=== PATIENT | female | born 1940 | race Caucasian/White ===

== ENCOUNTER 2021-09-08 21:29 | Inpatient (IN) ==
[2021-09-08] MEDS ORDERED: HYDROmorphone INJ 0.5 MG/0.5 ML SYR IV STA (21:38)
[2021-09-08] MEDS ORDERED: ONDANSETRON INJ 2 MG/ML 2 ML VIAL IV STA (21:38)
--- NOTE | 2021-09-08 21:43 | Emergency Department Note ---
History of Present Illness General Chief complaint: Fall Stated complaint: FALL/R HIP Time Seen by Provider: 09/08/21 21:30 Source: patient History of Present Illness Provider complaint: Right hip pain Onset (ago): hour(s) Location: hip and right Radiation: extremity (Right thigh) Severity: moderate Pain Consistency: + constant Quality: + aching Exacerbated By: + movement Associated symptoms: no chest pain, no cough, no fever/chills, no headaches, no nausea/vomiting, no shortness of breath or no syncope This is an 81-year-old female who slipped getting out of the shower approximately 6:30 PM today. She landed on her right leg and complains of pain to the right hip and leg. She describes it as an ache. She states the pain is constant. Is worse with movement. No associated numbness or weakness to the toes. She is sure she did not hit her head. She denies any headache, neck pain, back pain or other injury from the fall. She states she is on Coumadin for a history of DVT years ago. She otherwise takes a statin for high cholesterol. She denies any other medical problems. She has had no recent illness, fever, cough or cold symptoms, chest pain, shortness of breath, abdominal pain, vomiting, diarrhea or urinary symptoms. Home Medications Medication Instructions Recorded Confirmed Type atorvastatin 20 mg tablet 20 mg PO QPM 09/08/21 09/08/21 History warfarin 5 mg tablet 2.5 mg PO QPM 09/08/21 09/08/21 History Allergies Allergy/AdvReac Type Severity Reaction Status Date / Time rosuvastatin [From Crestor] AdvReac Unknown Unknown Verified 09/08/21 22:32 Past Med/Surg History Medical History (Updated 09/08/21 @ 23:27 by Ramy Smith MD) High cholesterol History of DVT (deep vein thrombosis) Social History (Updated 09/08/21 @ 21:41 by Ramy Smith MD) Smoking Status: Never smoker current occupational status: retired Review of Systems See HPI for pertinent positives & negatives. and A total of 10 systems reviewed and were otherwise negative Physical Exam Vital Signs Vital Signs - 24 hr 09/08/21 21:50 09/08/21 22:00 09/08/21 23:20 Temperature 36.8 C Temperature Source Oral Pulse Rate 92 H 88 91 H Respiratory Rate 18 18 16 Respiratory Effort / Characteristics Non-Labored Spontaneous Respiratory Depth Normal Blood Pressure 174/87 H 158/85 H 159/83 H Blood Pressure Mean 116 109 108 Blood Pressure Position Lying Pulse Oximetry 95 95 93 Sepsis Recent Fever Within 48 Hours No Sepsis New/Unexplained Change in Mental Status No Sepsis Action Taken by Nursing No Action Required Constitutional: Vital signs reviewed. Eyes: Pupils are equal round reactive to light. Conjunctiva are noninjected. ENT: Pharynx is clear without erythema or exudate. Mucous membranes are moist. Neck supple without meningeal signs. Respiratory: Clear to auscultation bilaterally. Breath sounds are equal bilaterally. Cardiovascular: Regular rate and rhythm. No rubs or gallops. GI: Soft, nondistended and nontender. Bowel sounds are present. Musculoskeletal: Significant shortening and external rotation of the right lower extremity. Dorsalis pedis pulses 2+. Motor and sensation are intact in the toes. Tenderness over the right hip. Integumentary: No cyanosis. or jaundice. Neurological: The patient is awake and alert. No focal deficits. Psychiatric: Normal affect. Not anxious appearing. Course Administered Medications Discontinued Medications Hydromorphone HCl (Hydromorphone Inj 0.5 Mg/0.5 Ml Syr) 0.5 mg IV NOW STA Stop: 09/08/21 21:39 Last Admin: 09/08/21 22:00 Dose: 0.5 mg Documented by: [id number] Ondansetron HCl (Ondansetron Inj 2 Mg/Ml 2 Ml Vial) 4 mg IV NOW STA Stop: 09/08/21 21:39 Last Admin: 09/08/21 22:00 Dose: 4 mg Documented by: [id number] Medical Decision Making Differential Diagnosis Hip fracture, hip dislocation, femur fracture, pelvic fracture, contusion Medical Records Attestation: I reviewed the patient's medical records. I did perform a limited focused review of portions of the patient's old chart on the electronic medical record. The patient has had no recent pertinent visits to this hospital. Home Medications Current Medication List: was personally reviewed by me Laboratory Data Attestation: I reviewed the patient's lab results. Result diagrams: 09/08/21 21:45 09/08/21 21:45 Lab Results 09/08/21 09/08/21 09/08/21 Range/Units 21:45 21:45 21:45 WBC 12.92 H (4.8-10.8) K/uL RBC 4.46 (4.2-5.4) M/uL Hgb 13.5 (12.0-16.0) g/dL Hct 42.1 (37-47) % MCV 94.4 (80-100) fL MCH 30.3 (25-34) pg MCHC 32.1 (32-36) g/dL RDW Std Deviation 46.7 H (36.4-46.3) fL RDW Coeff of Alejandro 13.4 (11.5-14.5) % Plt Count 215 (130-400) K/uL MPV 9.7 (7.4-10.4) fL Immature Gran % (Auto) 0.2 % Neut % (Auto) 85.7 % Lymph % (Auto) 7.7 % [place] % (Auto) 6.0 % Eos % (Auto) 0.2 % Baso % (Auto) 0.2 % Neut # (Auto) 11.08 H (1.4-6.5) K/uL Lymph # (Auto) 0.99 L (1.2-3.4) K/uL [place] # (Auto) 0.77 H (0.11-0.59) K/uL Eos # (Auto) 0.03 (0-0.5) K/uL Baso # (Auto) 0.02 (0-0.2) K/uL Immature Gran # (Auto) 0.03 H (0.00-0.02) K/uL PT 22.7 H (9.0-12.0) Seconds INR 2.4 H (0.9-1.1) APTT 30.5 (21.0-31.0) Seconds PTT Ratio 1.2 Sodium 141 (136-145) mmol/L Potassium 3.8 (3.5-5.1) mmol/L Chloride 107 (98-107) mmol/L Carbon Dioxide 25 (21-32) mmol/L Anion Gap 9.0 (3-11) BUN 29 H (7-18) mg/dl Creatinine 0.91 (0.6-1.2) mg/dl Est Cr Clr Drug Dosing 43.6 ml/min Est GFR ( Amer) 68.6 ml/min Est GFR (Non-Af Amer) 59.2 ml/min BUN/Creatinine Ratio 31.2 H (10-20) Glucose 229 H (70-99) mg/dl Calcium 9.2 (8.5-10.1) mg/dl Total Bilirubin 0.5 (0.2-1) mg/dl AST 19 (15-37) U/L ALT 27 (12-78) Alkaline Phosphatase 99 (45-117) U/L Total Protein 7.4 (6.4-8.2) gm/dl Albumin 3.7 (3.4-5.0) gm/dl Globulin 3.7 (2.5-4.0) gm/dl Albumin/Globulin Ratio 1.0 (0.9-2) Urine Color Urine Appearance (Clear) Urine pH (4.5-7.5) Ur Specific [place] (1.000-1.030) Urine Protein (Negative) Urine Glucose (UA) (Negative) Urine Ketones (Negative) Urine Blood (Negative) Urine Nitrite (Negative) Urine Bilirubin (Negative) Urine Urobilinogen (Negative) Ur Leukocyte Esterase (Negative) Urine WBC (Auto) (0-5) /hpf Urine RBC (Auto) (0-4) /hpf U Hyaline Cast (Auto) (0-5) /lpf U Epithel Cells (Auto) (0-5) /lpf Urine Bacteria (Auto) (Negative) Urine Yeast SARS-CoV-2, RNA, NAAT (NEGATIVE) 09/08/21 09/08/21 Range/Units 21:45 21:55 WBC (4.8-10.8) K/uL RBC (4.2-5.4) M/uL Hgb (12.0-16.0) g/dL Hct (37-47) % MCV (80-100) fL MCH (25-34) pg MCHC (32-36) g/dL RDW Std Deviation (36.4-46.3) fL RDW Coeff of Alejandro (11.5-14.5) % Plt Count (130-400) K/uL MPV (7.4-10.4) fL Immature Gran % (Auto) % Neut % (Auto) % Lymph % (Auto) % [place] % (Auto) % Eos % (Auto) % Baso % (Auto) % Neut # (Auto) (1.4-6.5) K/uL Lymph # (Auto) (1.2-3.4) K/uL [place] # (Auto) (0.11-0.59) K/uL Eos # (Auto) (0-0.5) K/uL Baso # (Auto) (0-0.2) K/uL Immature Gran # (Auto) (0.00-0.02) K/uL PT (9.0-12.0) Seconds INR (0.9-1.1) APTT (21.0-31.0) Seconds PTT Ratio Sodium (136-145) mmol/L Potassium (3.5-5.1) mmol/L Chloride (98-107) mmol/L Carbon Dioxide (21-32) mmol/L Anion Gap (3-11) BUN (7-18) mg/dl Creatinine (0.6-1.2) mg/dl Est Cr Clr Drug Dosing ml/min Est GFR ( Amer) ml/min Est GFR (Non-Af Amer) ml/min BUN/Creatinine Ratio (10-20) Glucose (70-99) mg/dl Calcium (8.5-10.1) mg/dl Total Bilirubin (0.2-1) mg/dl AST (15-37) U/L ALT (12-78) Alkaline Phosphatase (45-117) U/L Total Protein (6.4-8.2) gm/dl Albumin (3.4-5.0) gm/dl Globulin (2.5-4.0) gm/dl Albumin/Globulin Ratio (0.9-2) Urine Color Yellow Urine Appearance Cloudy A (Clear) Urine pH 5.0 (4.5-7.5) Ur Specific [place] 1.021 (1.000-1.030) Urine Protein Trace H (Negative) Urine Glucose (UA) 2+ H (Negative) Urine Ketones Trace H (Negative) Urine Blood Negative (Negative) Urine Nitrite Positive A (Negative) Urine Bilirubin Negative (Negative) Urine Urobilinogen Negative (Negative) Ur Leukocyte Esterase Trace H (Negative) Urine WBC (Auto) 10-30 H (0-5) /hpf Urine RBC (Auto) 0-4 (0-4) /hpf U Hyaline Cast (Auto) 1-5 (0-5) /lpf U Epithel Cells (Auto) 0-5 (0-5) /lpf Urine Bacteria (Auto) 4+ H (Negative) Urine Yeast Not Reportable SARS-CoV-2, RNA, NAAT NEGATIVE (NEGATIVE) ECG Data Attestation: I personally reviewed and interpreted this ECG as follows: Indication: + other (Fall) Rate (beats per minute): 88 Rhythm: + normal sinus ECG [place]: + Normal ECG ST segments: + Nonspecific ST abnormalities ECG Findings: no PVCs MDM Narrative I did evaluate the patient as noted above. The patient is presenting with a mechanical fall in which she sustained a right hip injury. She denies any head injury or neck pain. She has had no recent illness. IV access was established. I did treat her with IV Dilaudid and Zofran for pain control. I did place an order for continuous cardiac monitoring. The monitor showed normal sinus rhythm at a rate of 88 bpm. I did order and personally review the patient's 12-lead EKG as described above. She has no acute ischemic changes. I did order and personally reviewed the images of the patient's chest and pelvis and femur and hip x-rays as described above. She has a displaced fracture to her proximal femur. Chest x-ray is unremarkable. I did order and review the patient's blood work as noted in the electronic medical record. Her white count is slightly elevated 12.9. She is not anemic or thrombocytopenic. INR is therapeutic at 2.4. Electrolytes and LFTs are unremarkable. Glucose is 229 and she denies any history of diabetes. I did order a hemoglobin A1c. Covid testing is negative. I did reassess the patient. She is feeling much better. I did pull traction on the leg to make her more comfortable. He she is still shortened but alignment is much better. She remains neurovascularly intact. I did discuss case with Dr. Vivas. He recommended 5 pounds of Ruval[place]aba's traction which I ordered. I did discuss case with the hospitalist and piano case and bench assembler. Impression & Plan Femur fracture, right, Fall, Acute hyperglycemia, Anticoagulated on warfarin Discharge Plan Visit Data Chief Complaint: Fall Stated Complaint: FALL/R HIP ED Provider: Ramy Smith Discharge Problem: Femur fracture, right, Fall, Acute hyperglycemia, Anticoagulated on warfarin Patient Disposition: Being Evaluated by Hospitalist Forms Stand Alone Forms: My [facility] Prescriptions Prescriptions: No Action atorvastatin 20 mg tablet 20 mg PO QPM RF: 0 warfarin 5 mg tablet 2.5 mg PO QPM RF: 0 Referrals Referrals: PCP,NO [Physician] - Discharge Problem: Femur fracture, right Qualifiers: Encounter type: initial encounter Femur location: shaft Fracture type: closed Fracture morphology: oblique Fracture alignment: displaced Qualified Code(s): S72.331A - Displaced oblique fracture of shaft of right femur, initial encounter for closed fracture Fall Qualifiers: Encounter type: initial encounter Qualified Code(s): W19.XXXA - Unspecified fall, initial encounter
[2021-09-08 21:56] LABS: Basophils # (auto) 0.02 K/uL (0-0.2); Basophils % (auto) 0.2 %; Eosinophils # (auto) 0.03 K/uL (0-0.5); Eosinophils % (auto) 0.2 %; Hematocrit (blood only) 42.1 % (37-47); Hemoglobin 13.5 g/dL (12.0-16.0); Immature Granulocytes # (auto) 0.03 K/uL (0.00-0.02); Immature Granulocytes % (auto) 0.2 %; Lymphocytes # (auto) 0.99 K/uL (1.2-3.4); Lymphocytes % (auto) 7.7 %; Mean Corpuscular Hemoglobin 30.3 pg (25-34); Mean Corpuscular Hgb Conc 32.1 g/dL (32-36); Mean Corpuscular Volume 94.4 fL (80-100); Mean Platelet Volume 9.7 fL (7.4-10.4); Monocytes # (auto) 0.77 K/uL (0.11-0.59); Neutrophils # (auto) 11.08 K/uL (1.4-6.5); Neutrophils % (auto) 85.7 %; Platelet Count 215 K/uL (130-400); RDW Coefficient of Variation 13.4 % (11.5-14.5); RDW Standard Deviation 46.7 fL (36.4-46.3); Red Blood Count 4.46 M/uL (4.2-5.4); White Blood Count 12.92 K/uL (4.8-10.8)
[2021-09-08 22:12] LABS: Albumin Level 3.7 gm/dl (3.4-5.0); BUN Creatinine Ratio 31.2 (10-20); Calcium 9.2 mg/dl (8.5-10.1); Creatinine Clr Calc Pharmacy 43.6 ml/min; Est GFR (African American) 68.6 ml/min; Est GFR (Non-African American) 59.2 ml/min; Potassium 3.8 mmol/L (3.5-5.1)
[2021-09-08 22:13] LABS: INR 2.4 (0.9-1.1); Partial Thromboplastin Ratio 1.2; Partial Thromboplastin Time 30.5 Seconds (21.0-31.0); Prothrombin Time 22.7 Seconds (9.0-12.0)
[2021-09-08 22:15] LABS: Bilirubin,Total 0.5 mg/dl (0.2-1); Globulin 3.7 gm/dl (2.5-4.0); Total Protein 7.4 gm/dl (6.4-8.2)
[2021-09-08 22:40] LABS: Appearance Urine Cloudy (Clear); Bacteria Urine Automated 4+ (Negative); Bilirubin Urine Negative (Negative); Blood Urine Negative (Negative); Color Urine Yellow; Epithelial Cell Urine Auto 0-5 /lpf (0-5); Glucose Urine UA 2+ (Negative); Ketones Urine Trace (Negative); Leukocyte Esterase Urine Trace (Negative); Nitrite Urine Positive (Negative); Protein Urine Trace (Negative); RBC Urine Automated 0-4 /hpf (0-4); Specific Gravity Urine 1.021 (1.000-1.030); Urobilinogen Urine Negative (Negative)
[2021-09-09] MEDS ORDERED: HYDROmorphone INJ 0.5 MG/0.5 ML SYR IV STA (00:09)
--- NOTE | 2021-09-09 00:09 | History & Physical Report ---
Date of Service September 09, 2021 Assessment & Plan (1) Femur fracture, right: Plan: 81 yo F w/ pMHx. of DVT and PE, TIA, HLD presents after a fall with right femur fracture Right proximal femur fracture seen on XR femur and hip with angulation and displacement Fall appears to be mechanical in nature - hip fracture order set utilized - consulted Dr. Vivas with orthopedics - 5lb traction applied to the leg - holding Warfarin and will recheck INR - Anesthesia consulted - NPO - pain control with IV Morphine Prior DVT/PE on warfarin last dose on 09/08 in the evening - holding warfarin - recheck INR in the morning Asymptomatic bacteruria - treating with Ceftriaxone given the perioperative period - follow up culture results HLD - continue Atorvastatin Diet: NPO, LR at 80/h X 2 bags DVT: warfarin held pre-operatively, SCD's and compression ordered Code: full code History of Present Illness Chief Complaint: right hip pain Primary Care Provider: Kailey Esquivel DO Sherry Carias is here for a fall. She fell while in the shower, she was turning and tripped over the curtain and landed on her backside. The water was not on yet. She was then stuck between the shower chair and the shower. She did not hit her head. She was stuck in her shower for a couple of hours before her son found her. She did not have any chest pain. She does not use any assisted devices at home and does not use any stairs at home. She had a prior history of a TIA. She also has a prior history of a DVT and PE after she was hospitalized approximately 12 years ago. She has since been on Warfarin with the last dose on 09/08 in the evening. She has been told that she has borderline high blood sugar but has not taken medications for this. She has had a prior partial hysterectomy and did not have any complications with that procedure. Denies tobacco use, alcohol use, rec. drug use. Not vaccinated against COVID-19. Allergies Allergy/AdvReac Type Severity Reaction Status Date / Time rosuvastatin [From Crestor] AdvReac Unknown Unknown Verified 09/08/21 22:32 Home Medications Medication Instructions Recorded Confirmed Type atorvastatin 20 mg tablet 20 mg PO QPM 09/08/21 09/08/21 History warfarin 5 mg tablet 2.5 mg PO QPM 09/08/21 09/08/21 History Past Med/Surg History Medical History High cholesterol History of DVT (deep vein thrombosis) Social History Smoking Status: Never smoker current occupational status: retired Review of Systems Review of Systems: Constitutional: denies fevers, chills, nausea, vomiting, night sweats, weight loss head: denies vision changes Neurologic: denies slurring of speech, focal weakness Cardiac: denies chest pain, palpitations, leg swelling Pulm.: denies cough, shortness of breath GI: denies diarrhea, constipation, blood in stool : denies urgency, polyuria, dysuria, hematuria Physical Exam Constitutional: WD/WN, vitals as above Eyes: PERRL, conjunctivae normal, anicteric sclerae ENMT: external ear and nose normal, oropharynx normal Neck: normal visual inspection Respiratory: normal respiratory effort, lungs clear to auscultation Cardiovascular: RRR, no murmur, no edema Gastrointestinal (Abdomen): normal bowel sounds, soft, nontender, no hepatosplenomegaly Musculoskeletal: - tender to palpation of the right hip with swelling and no bruising - sensation intact to the lower extremity - DP pulses intact Skin: no rashes, warm and dry Psychiatric: A+Ox3, euthymic affect Results & Data Results & [facility] ([facility]) Vital Signs (Past 12 Hours) Vital Signs Temp Pulse Resp BP Pulse Ox 09/08/21 23:20 91 H 16 159/83 H 93 09/08/21 22:00 88 18 158/85 H 95 09/08/21 21:50 36.8 C 92 H 18 174/87 H 95 Laboratory Results Laboratory Results WBC 12.92 K/uL (4.8-10.8) H 09/08/21 21:45 RBC 4.46 M/uL (4.2-5.4) 09/08/21 21:45 Hgb 13.5 g/dL (12.0-16.0) 09/08/21 21:45 Hct 42.1 % (37-47) 09/08/21 21:45 MCV 94.4 fL (80-100) 09/08/21 21:45 MCH 30.3 pg (25-34) 09/08/21 21:45 MCHC 32.1 g/dL (32-36) 09/08/21 21:45 RDW Std Deviation 46.7 fL (36.4-46.3) H 09/08/21 21:45 RDW Coeff of Alejandro 13.4 % (11.5-14.5) 09/08/21 21:45 Plt Count 215 K/uL (130-400) 09/08/21 21:45 MPV 9.7 fL (7.4-10.4) 09/08/21 21:45 Immature Gran % (Auto) 0.2 % 09/08/21 21:45 Neut % (Auto) 85.7 % 09/08/21 21:45 Lymph % (Auto) 7.7 % 09/08/21 21:45 [place] % (Auto) 6.0 % 09/08/21 21:45 Eos % (Auto) 0.2 % 09/08/21 21:45 Baso % (Auto) 0.2 % 09/08/21 21:45 Neut # (Auto) 11.08 K/uL (1.4-6.5) H 09/08/21 21:45 Lymph # (Auto) 0.99 K/uL (1.2-3.4) L 09/08/21 21:45 [place] # (Auto) 0.77 K/uL (0.11-0.59) H 09/08/21 21:45 Eos # (Auto) 0.03 K/uL (0-0.5) 09/08/21 21:45 Baso # (Auto) 0.02 K/uL (0-0.2) 09/08/21 21:45 Immature Gran # (Auto) 0.03 K/uL (0.00-0.02) H 09/08/21 21:45 PT 22.7 Seconds (9.0-12.0) H 09/08/21 21:45 INR 2.4 (0.9-1.1) H 09/08/21 21:45 APTT 30.5 Seconds (21.0-31.0) 09/08/21 21:45 PTT Ratio 1.2 09/08/21 21:45 Sodium 141 mmol/L (136-145) 09/08/21 21:45 Potassium 3.8 mmol/L (3.5-5.1) 09/08/21 21:45 Chloride 107 mmol/L (98-107) 09/08/21 21:45 Carbon Dioxide 25 mmol/L (21-32) 09/08/21 21:45 Anion Gap 9.0 (3-11) 09/08/21 21:45 BUN 29 mg/dl (7-18) H 09/08/21 21:45 Creatinine 0.91 mg/dl (0.6-1.2) 09/08/21 21:45 Est Cr Clr Drug Dosing 43.6 ml/min 09/08/21 21:45 Est GFR ( Amer) 68.6 ml/min 09/08/21 21:45 Est GFR (Non-Af Amer) 59.2 ml/min 09/08/21 21:45 BUN/Creatinine Ratio 31.2 (10-20) H 09/08/21 21:45 Glucose 229 mg/dl (70-99) H 09/08/21 21:45 Calcium 9.2 mg/dl (8.5-10.1) 09/08/21 21:45 Total Bilirubin 0.5 mg/dl (0.2-1) 09/08/21 21:45 AST 19 U/L (15-37) 09/08/21 21:45 ALT 27 (12-78) 09/08/21 21:45 Alkaline Phosphatase 99 U/L (45-117) 09/08/21 21:45 Total Protein 7.4 gm/dl (6.4-8.2) 09/08/21 21:45 Albumin 3.7 gm/dl (3.4-5.0) 09/08/21 21:45 Globulin 3.7 gm/dl (2.5-4.0) 09/08/21 21:45 Albumin/Globulin Ratio 1.0 (0.9-2) 09/08/21 21:45 Urine Color Yellow 09/08/21 21:45 Urine Appearance Cloudy (Clear) A 09/08/21 21:45 Urine pH 5.0 (4.5-7.5) 09/08/21 21:45 Ur Specific [place] 1.021 (1.000-1.030) 09/08/21 21:45 Urine Protein Trace (Negative) H 09/08/21 21:45 Urine Glucose (UA) 2+ (Negative) H 09/08/21 21:45 Urine Ketones Trace (Negative) H 09/08/21 21:45 Urine Blood Negative (Negative) 09/08/21 21:45 Urine Nitrite Positive (Negative) A 09/08/21 21:45 Urine Bilirubin Negative (Negative) 09/08/21 21:45 Urine Urobilinogen Negative (Negative) 09/08/21 21:45 Ur Leukocyte Esterase Trace (Negative) H 09/08/21 21:45 Urine WBC (Auto) 10-30 /hpf (0-5) H 09/08/21 21:45 Urine RBC (Auto) 0-4 /hpf (0-4) 09/08/21 21:45 U Hyaline Cast (Auto) 1-5 /lpf (0-5) 09/08/21 21:45 U Epithel Cells (Auto) 0-5 /lpf (0-5) 09/08/21 21:45 Urine Bacteria (Auto) 4+ (Negative) H 09/08/21 21:45 Urine Yeast Not Reportable 09/08/21 21:45 SARS-CoV-2, RNA, NAAT NEGATIVE (NEGATIVE) 09/08/21 21:55 Blood Type A Negative 09/08/21 22:28 Antibody Screen NEGATIVE 09/08/21 22:28 Code Status & VTE Plan VTE Prophylaxis Plan VTE Prophylaxis will be ordered: Yes Supervising Physician Co-Signing Physician Notes Patient seen and examined, chart reviewed, case discussed with Dr. Galvan and I agree with his assessment and plan as above. In brief, patient is a very pleasant 81yo female presenting with right femoral fracture following a mechanical flal in her bathroom. Reports being down for a short amount of time. Sensation intact Pain controlled while laying still No additional complaints at this time On exam she is afebrile, HD stable, NAD Skin - warm, dry, intact, no bruising HEENT - NC/AT, PERRL, MMM, Neck supple Heart - +S1/S2, regular, 2/6 ANAI across precordium Lungs - CTA Abd - +BS, soft, NT/ND Ext - RLE shortened, swelling deformity to right lateral thigh, no bruising. Pulses at right femoral strong as well as 2+ palpable RLE PT/DP pulses. Sensation intact. Traction to be placed Labs and images reviewed Assessment/Plan. 80yo female with history of prior DVT on Coumadin s/p mechanical fall with right displaced femoral fracture. NV intact. Pain fairly well controlled at this point. Admit to medical. Maintain traction Hold Coumadin - granddaughter states patient DID NOT take it yet today. Repeat INR in AM Pain control with Morphine PRN - cautious use in elderly female UA suggestive of infection - Ceftriaxone ordered, follow culture Remainder of plan as above Resident Activity Tracking Resident Involvement: Resident Care Provided Care Provided: Adult Hospital Medicine (1) Femur fracture, right Encounter type: initial encounter Femur location: shaft Fracture alignment: displaced Fracture morphology: oblique Fracture type: closed Qualified Code(s): S72.331A - Displaced oblique fracture of shaft of right femur, initial encounter for closed fracture
--- NOTE | 2021-09-09 03:04 | Billing Data ---
Date of Service September 09, 2021 Coding Level of Care Code 58078 Initial Inpt Care Lvl 3
[2021-09-09] MEDS ORDERED: ACETAMINOPHEN 325 MG TAB PO PRN (04:22)
[2021-09-09] MEDS ORDERED: bisacodyL 10 MG SUPP PR PRN (04:22)
[2021-09-09] MEDS ORDERED: MAGNESIUM HYDROXIDE SUSP 30 ML UDC PO PRN (04:22)
[2021-09-09] MEDS ORDERED: POLYETHYLENE (MIRALAX) 17 GM PACK PO PRN (04:22)
[2021-09-09] MEDS ORDERED: NALOXONE HCL 0.4 MG/1 ML VIAL/CARP IV PRN (04:22)
[2021-09-09] MEDS: LACTATED RINGER'S 1,000 ML IV SCH ×2 (05:12→18:03)
[2021-09-09] MEDS: cefTRIAXone SODIUM 1,000 MG in DEXTROSE 5% 50 ML IV SCH (05:14)
[2021-09-09] MEDS: MoRPHine SULFATE 4 MG/ML 1 ML CARP\\VIAL IV PRN ×4 (05:26→22:12)
[2021-09-09 05:31] LABS: Basophils # (auto) 0.02 K/uL (0-0.2); Basophils % (auto) 0.3 %; Hematocrit (blood only) 37.6 % (37-47); Hemoglobin 12.1 g/dL (12.0-16.0); Immature Granulocytes # (auto) 0.01 K/uL (0.00-0.02); Immature Granulocytes % (auto) 0.1 %; Lymphocytes # (auto) 1.09 K/uL (1.2-3.4); Lymphocytes % (auto) 13.9 %; Mean Corpuscular Hemoglobin 30.5 pg (25-34); Mean Corpuscular Hgb Conc 32.2 g/dL (32-36); Mean Corpuscular Volume 94.7 fL (80-100); Mean Platelet Volume 9.3 fL (7.4-10.4); Monocytes # (auto) 0.78 K/uL (0.11-0.59); Monocytes % (auto) 9.9 %; Neutrophils # (auto) 5.95 K/uL (1.4-6.5); Neutrophils % (auto) 75.8 %; Platelet Count 193 K/uL (130-400); RDW Coefficient of Variation 13.4 % (11.5-14.5); RDW Standard Deviation 46.9 fL (36.4-46.3); Red Blood Count 3.97 M/uL (4.2-5.4); White Blood Count 7.85 K/uL (4.8-10.8)
[2021-09-09 05:42] LABS: Partial Thromboplastin Ratio 1.2; Partial Thromboplastin Time 32.4 Seconds (21.0-31.0); Prothrombin Time 18.8 Seconds (9.0-12.0)
[2021-09-09 05:56] LABS: Albumin Level 3.2 gm/dl (3.4-5.0); BUN Creatinine Ratio 48.1 (10-20); Calcium 9.6 mg/dl (8.5-10.1); Creatinine Clr Calc Pharmacy 55.4 ml/min; Est GFR (African American) 92.6 ml/min; Est GFR (Non-African American) 79.9 ml/min; Potassium 4.2 mmol/L (3.5-5.1)
[2021-09-09 05:59] LABS: Bilirubin,Total 0.5 mg/dl (0.2-1); Globulin 3.3 gm/dl (2.5-4.0); Total Protein 6.5 gm/dl (6.4-8.2)
--- NOTE | 2021-09-09 10:21 | XRay Report ---
XR femur RT 2V routine, XR hip RT min 2V CLINICAL HISTORY: fall eval for fx. Right hip pain. COMPARISON STUDY: None. FINDINGS: There is a displaced subtrochanteric fracture of the proximal right femur. This demonstrate s 6 cm of overlap as well as 7 cm of posterior displacement. The distal femur is intact. Mild vascula r calcifications are noted. No fractures within the visualized pelvic bones. No dislocation. Cholelit hiasis. An IVC filter is partially visualized. IMPRESSION: Displaced subtrochanteric fracture of the proximal right femur. ACT 112: Negative or not required by law. Electronically signed by: Iggy Toribio M.D. 09/09/2021 10:19 AM
--- NOTE | 2021-09-09 11:10 | Hospitalist Progress Note ---
Date of Service September 09, 2021 Assessment & Plan (1) Femur fracture, right: Plan: Right proximal femur fracture seen on XR femur and hip with angulation and displacement - hip fracture order set utilized - consulted Dr. Vivas with orthopedics - 5lb traction applied to the leg - holding Warfarin and will continue monitoring INR - Anesthesia consulted - pain control with IV Morphine - Pt was made NPO this morning but no plans for surgery today, will order a diet (2) UTI (urinary tract infection): Plan: - UA grossly infected but pt is asymptomatic (uncomplicated) - Rocephin 1g IV daily empirically - Urine culture pending (3) History of DVT (deep vein thrombosis): Plan: - Prior DVT/PE on warfarin - Last dose on 12/ in the evening - Holding warfarin - INR still too high to proceed with surgery today - Continue holding Warfarin and repeat INR in AM (4) High cholesterol: Plan: - Continue Atorvastatin Plan: Diet: Regular, NPO after MN DVT: warfarin held pre-operatively, SCD's and compression ordered Code: full code Check AM labs Admission and Anticipated Discharge Date Admission Date: September 09, 2021 Subjective Patient was seen on rounds this morning. She remains hospitalized for acute right femur fracture after a mechanical fall. She reports no complaints of R hip pain when lying still, but does have pain with movement. Denies chest pain, dyspnea, n/v/d, f/c, headache, or gu symptoms. Santos placed in ED. Review of Systems Review of Systems: CONSTITUTIONAL: Denies weight loss/gain, fever and chills, fatigue, malaise, generalized weakness. HEENT: Denies changes in vision and hearing. RESPIRATORY: Denies SOB, cough, wheezing. CV: Denies palpitations, CP, lower extremity edema, orthopnea, PND. GI: Denies abdominal pain, nausea, vomiting and diarrhea. : Denies dysuria and urinary frequency, urgency, hesitancy. MUSCULOSKELETAL: +R hip pain only w/ movement SKIN: Denies rash and pruritus. NEUROLOGICAL: Denies headache, syncope, focal weakness, numbness, tingling. PSYCHIATRIC: Denies recent changes in mood. Denies anxiety and depression. Physical Exam Physical Exam: GENERAL: 81 yo WD/WN elderly WF. Pleasant, cooperative, NAD. LUNGS: Clear to auscultation bilaterally. No accessory muscle use. No W/R/R. CARDIOVASCULAR: Regular rate and rhythm w/ 2/6 ANAI. No G/R. ABDOMEN: Soft, non-tender and non-distended. Bowel sounds normoactive x 4 quad. EXTREMITIES: RLE externally rotated and shortened. Atkinson traction in place. NV intact. PSYCHIATRIC: Cooperative. Appropriate mood and affect. SKIN: Warm, dry, intact. No rashes or lesions. Results & Data Results & Data ([facility]) Vital Signs (Past 12 Hours) Vital Signs Temp Pulse Pulse Resp BP BP Pulse Ox 09/09/21 07:45 36.8 C 80 18 124/72 94 09/09/21 04:15 36.7 C 89 18 152/78 H 96 09/09/21 03:00 83 13 102/58 L 92 09/09/21 02:00 85 14 101/54 L 92 09/09/21 01:00 87 16 108/58 L 93 09/09/21 00:00 90 18 137/92 93 09/08/21 23:20 91 H 16 159/83 H 93 Laboratory Results 09/09/21 05:18 09/09/21 05:18 PG Care Time/CCT Total # of Minutes Spent Total Time Spent with Patient: Total time spent is greater than 50% in coordination of care (as documented) at patient's floor/unit and/or counseling patient: Coding Level of Care Code 32608 Subseq Hosp Care Lvl 2 Diagnoses Femur fracture, right S72.331A Encounter type: initial encounter Femur location: shaft Fracture alignment: displaced Fracture morphology: oblique Fracture type: closed History of DVT (deep vein thrombosis) Z86.718 High cholesterol E78.00 UTI (urinary tract infection) N39.0 (1) Femur fracture, right Encounter type: initial encounter Femur location: shaft Fracture alignment: displaced Fracture morphology: oblique Fracture type: closed Qualified Code(s): S72.331A - Displaced oblique fracture of shaft of right femur, initial encounter for closed fracture
--- NOTE | 2021-09-09 11:10 | XRay Report ---
XR chest 1V portable CLINICAL HISTORY: Hip fracture. COMPARISON STUDY: No previous studies for comparison. FINDINGS: Incidental note is made of elevation of the right humeral head with severe degenerative sasha nges of the right shoulder. IVC filter is partially imaged. There is no pneumothorax or pleural effus ion. Note is made of mild to moderate cardiomegaly without evidence for pulmonary edema. There is no consolidation. Suspected calcified densities within the lungs are benign. IMPRESSION: No acute cardiopulmonary findings. Cardiomegaly. ACT 112: Negative or not required by law. Electronically signed by: Irvin Garcia M.D. 09/09/2021 11:08 AM
--- NOTE | 2021-09-09 11:36 | Orthopedic Consultation ---
Date of Consultation September 09, 2021 Assessment & Plan (1) Femur fracture, right: Warfarin currently on hold. Will recheck INR for possible surgery on friday. History of DVT/PE Will plan for right hip troch nail once cleared by medicine for surgery. Discussed risks and benefits with the patient. History of Present Illness Reason for Consultation: right hip fracture Attending Physician: Jabari Mccann DO History of Present Illness 81 y/o white female presented to the ED after she had a fall last evening when she was trying to get in the shower and tripped on shower curtain. She lives at home with her son. Resting in bed this am eating some pudding. Her pain is currently well controlled. 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 localized tenderness. Calves soft. Toes mobile. NVI. Results & Data ([facility]) Vital Signs (Past 12 Hours) Vital Signs Temp Pulse Pulse Resp BP BP Pulse Ox 09/09/21 07:45 36.8 C 80 18 124/72 94 09/09/21 04:15 36.7 C 89 18 152/78 H 96 09/09/21 03:00 83 13 102/58 L 92 09/09/21 02:00 85 14 101/54 L 92 09/09/21 01:00 87 16 108/58 L 93 09/09/21 00:00 90 18 137/92 93 (1) Femur fracture, right Encounter type: initial encounter Femur location: shaft Fracture alignment: displaced Fracture morphology: oblique Fracture type: closed Qualified Code(s): S72.331A - Displaced oblique fracture of shaft of right femur, initial encounter for closed fracture
--- NOTE | 2021-09-09 12:53 | Anesthesiology Consultation ---
Date of Service September 09, 2021 Assessment & Plan Chart Review Chart Review: Acceptable Risk for Surgery and Patient NOT seen in Pre Admission Testing Consults Requested none History Height/Weight Height: 5 ft 2 in Weight: 66.075 kg Allergies Allergy/AdvReac Type Severity Reaction Status Date / Time rosuvastatin [From Crestor] AdvReac Unknown Unknown Verified 09/08/21 22:32 Medications Home Medications Medication Instructions Recorded Confirmed Last Taken atorvastatin 20 mg tablet 20 mg PO QPM 09/08/21 09/08/21 Unknown warfarin 5 mg tablet 2.5 mg PO QPM 09/08/21 09/08/21 Unknown Active Medications Generic Name Dose Route Start Last Admin Trade Name Freq PRN Reason Stop Dose Admin Lactated Ringer's 1,000 mls @ 80 mls/hr 09/09/21 04:22 09/09/21 05:12 Lr IV 09/10/21 05:21 80 mls/hr .[id number] MARIA ANTONIA Administration Ceftriaxone Sodium 1,000 mg/ 50 mls @ 100 mls/hr 09/09/21 05:00 09/09/21 06:06 Dextrose IV 09/19/21 04:59 Infused Q24H MARIA ANTONIA Infusion Protocol Morphine Sulfate 4 mg 09/09/21 04:22 09/09/21 05:26 Morphine Sulfate 4 Mg/Ml 1 Ml Carp\Vial IV 09/23/21 04:21 4 mg Q3H PRN Administration Pain (6,7,8,9,10) NPO Date Last Intake of Fluids: 09/08/21 Time Last Intake of Fluids: 12:00 Past Medical History Medical History High cholesterol History of DVT (deep vein thrombosis) Exercise / Class Metabolic Activity III < 4 Walking/Shop/Light housework Past Anesthesia History No Hx of Anesthesia Complications and No Family Hx of Anesthesia Complications History of PONV No Hx of PONV and No Hx of Motion Sickness Social History Smoking Status: Never smoker Hx Alcohol Use: No Hx Substance Use: No Physical Exam Vital Signs Last Vital Signs Temp 36.8 C 09/09/21 07:45 Pulse 80 09/09/21 07:45 Resp 18 09/09/21 07:45 BP 124/72 09/09/21 07:45 Pulse Ox 94 09/09/21 07:45 Testing Laboratory Results 09/09/21 05:18 09/09/21 05:18 PT 18.8 Seconds (9.0-12.0) H 09/09/21 05:18 INR 2.0 (0.9-1.1) H 09/09/21 05:18 APTT 32.4 Seconds (21.0-31.0) H 09/09/21 05:18 Urine Color Yellow 09/08/21 21:45 Urine Appearance Cloudy (Clear) A 09/08/21 21:45 Urine pH 5.0 (4.5-7.5) 09/08/21 21:45 Ur Specific [place] 1.021 (1.000-1.030) 09/08/21 21:45 Urine Protein Trace (Negative) H 09/08/21 21:45 Urine Glucose (UA) 2+ (Negative) H 09/08/21 21:45 Urine Ketones Trace (Negative) H 09/08/21 21:45 Urine Nitrite Positive (Negative) A 09/08/21 21:45 Ur Leukocyte Esterase Trace (Negative) H 09/08/21 21:45 Urine WBC (Auto) 10-30 /hpf (0-5) H 09/08/21 21:45 Urine RBC (Auto) 0-4 /hpf (0-4) 09/08/21 21:45 U Hyaline Cast (Auto) 1-5 /lpf (0-5) 09/08/21 21:45 U Epithel Cells (Auto) 0-5 /lpf (0-5) 09/08/21 21:45 Urine Bacteria (Auto) 4+ (Negative) H 09/08/21 21:45 Blood Type A Negative 09/08/21 22:28 Antibody Screen NEGATIVE 09/08/21 22:28 09/08/21 21:45 Urine Culture - Preliminary Urine,Clean Catch Gram negative bacilli Electrocardiogram Date: 09/08/21 Findings: + NSR @ (@ 88) and + NSST changes Chest X-Ray Date: 09/08/21 Findings: + NAD and + cardiomegaly (mild-moderate)
--- NOTE | 2021-09-09 13:03 | Electrocardiogram Report ---
Test Reason : Blood Pressure : / mmHG Vent. Rate : 088 BPM Atrial Rate : 088 BPM P-R Int : 154 ms QRS Dur : 078 ms QT Int : 384 ms P-R-T Axes : 031 -10 045 degrees QTc Int : 464 ms Poor data quality, interpretation may be adversely affected Normal sinus rhythm Nonspecific ST abnormality Abnormal ECG No previous ECGs available Confirmed by Kennedy Sanz ([id number]) on 09/09/2021 1:02:52 PM Referred By: REFERRED SELF Confirmed By:Kennedy Sanz
[2021-09-09] MEDS ORDERED: ALUMINUM/MAGNESIUM SUSP 30 ML UDC PO PRN (16:02)
[2021-09-09] MEDS: DOCUSATE SODIUM/SENNA 50/8.6MG TAB PO SCH (21:25)
[2021-09-09] MEDS: ATORVASTATIN 20 MG TAB PO SCH (21:25)
[2021-09-09] MEDS ORDERED: MoRPHine SULFATE 2 MG/ML CARP ONE (22:10)
[2021-09-10] MEDS: cefTRIAXone SODIUM 1,000 MG in DEXTROSE 5% 50 ML IV SCH (04:38)
[2021-09-10] MEDS: MoRPHine SULFATE 4 MG/ML 1 ML CARP\\VIAL IV PRN ×2 (04:39→13:30)
[2021-09-10] MEDS ORDERED: SODIUM CHLORIDE 0.9% 1000ML 1,000 ML IV SCH (05:30)
[2021-09-10 07:05] LABS: Basophils # (auto) 0.04 K/uL (0-0.2); Basophils % (auto) 0.6 %; Eosinophils # (auto) 0.11 K/uL (0-0.5); Eosinophils % (auto) 1.6 %; Hematocrit (blood only) 33.8 % (37-47); Hemoglobin 10.7 g/dL (12.0-16.0); Immature Granulocytes # (auto) 0.01 K/uL (0.00-0.02); Immature Granulocytes % (auto) 0.1 %; Lymphocytes % (auto) 20.8 %; Mean Corpuscular Hemoglobin 30.4 pg (25-34); Mean Corpuscular Hgb Conc 31.7 g/dL (32-36); Mean Platelet Volume 9.3 fL (7.4-10.4); Monocytes # (auto) 0.98 K/uL (0.11-0.59); Monocytes % (auto) 14.6 %; Neutrophils # (auto) 4.19 K/uL (1.4-6.5); Neutrophils % (auto) 62.3 %; Platelet Count 184 K/uL (130-400); RDW Standard Deviation 49.1 fL (36.4-46.3); Red Blood Count 3.52 M/uL (4.2-5.4); White Blood Count 6.73 K/uL (4.8-10.8)
[2021-09-10 07:10] LABS: INR 1.3 (0.9-1.1); Prothrombin Time 12.6 Seconds (9.0-12.0)
[2021-09-10 07:36] LABS: Estimated Average Glucose 146 mg/dl; Hemoglobin A1C 6.7 % (4.5-5.6)
[2021-09-10 07:38] LABS: BUN Creatinine Ratio 44.8 (10-20); Calcium 8.8 mg/dl (8.5-10.1); Creatinine Clr Calc Pharmacy 74.2 ml/min; Est GFR (African American) 103.2 ml/min; Potassium 4.4 mmol/L (3.5-5.1)
[2021-09-10] MEDS ORDERED: BUPIVACAINE 0.5 % 5 MG/1 ML PF 10ML VIAL ONE (08:14)
--- NOTE | 2021-09-10 17:09 | History & Physical Bridge Note ---
Date of Service September 10, 2021 History & Physical Bridge Note I have examined the patient, reviewed the History & Physical and in the interval since the performance of the History & Physical I have noted the following changes of clinical significance: no changes noted
[2021-09-10] MEDS ORDERED: DEXAMETHASONE SOD INJ 4 MG/ML VIAL ONE (17:22)
[2021-09-10] MEDS ORDERED: PROPOFOL IV EMULSION 10 MG/ML 20 ML VIAL IV ONE (17:22)
[2021-09-10] MEDS ORDERED: ONDANSETRON INJ 2 MG/ML 2 ML VIAL ONE (17:22)
[2021-09-10] MEDS ORDERED: LIDOCAINE 2% 2 ML VIAL/AMP(20MG/ML) INFIL ONE (17:22)
[2021-09-10] MEDS ORDERED: fentaNYL citrate 100 MCG/2 ML VIAL ONE ×3 (17:22→19:33)
[2021-09-10] MEDS ORDERED: ceFAZolin 2000MG 2,000 MG/15 ML SYR IV ONE (17:25)
[2021-09-10] MEDS ORDERED: ceFAZolin 2,000 MG/15 ML IV PUSH IV ONE (17:26)
[2021-09-10] MEDS ORDERED: ACETAMINOPHEN 1000 MG/100 ML IV IV ONE (17:26)
[2021-09-10] MEDS ORDERED: BUPIVACAINE 0.5 % 5 MG/1 ML MPF 30ML VIAL ONE (17:30)
[2021-09-10] MEDS ORDERED: ATROPINE SULFATE 0.1 MG/ML 10ML SYR IV PRN (17:43)
[2021-09-10] MEDS ORDERED: ePHEDrine sulfate 50 MG/ML AMP IV PRN (17:43)
[2021-09-10] MEDS ORDERED: ONDANSETRON INJ 2 MG/ML 2 ML VIAL IV PRN (17:43)
--- NOTE | 2021-09-10 18:01 | Hospitalist Progress Note ---
Date of Service September 10, 2021 Assessment & Plan (1) Femur fracture, right: Plan: - XR - displaced subtrochanteric fracture of the proximal R femur - Traction currently applied and planning on surgical intervention this afternoon; INR 1.3 -- She is a class II risk with 6% risk of , MD, cardiac arrest in 30 days as she does have a H/O TIA in the past; however is active and denies chest pain with ambulation - appears appropriate surgical risk at this time -- INR is now 1.3 - Pain and bowel regimen - PT/OT post-operatively - patient is hoping she does well enough to go home with services and may be a good candidate pending evaluations (2) UTI (urinary tract infection): Plan: - UA grossly infected but pt is asymptomatic (uncomplicated) - Rocephin 1g IV daily - given surgical intervention - Urine culture - e. 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 14 years ago - Reports she is normally well regulated on warfarin and rarely needs dosage adjustments and normally only needs once a month INR checks - Holding warfarin currently - will discuss with ortho on when safe to resume -- May need to bridge given multiple DVT/PE in the past (4) High cholesterol: Plan: - Also H/O TIA - Continue Atorvastatin Plan: Disposition: Await surgical intervention and post-operative PT/OT; would like to return home with home services and may be a good candidate pending evaluations Admission and Anticipated Discharge Date Admission Date: September 09, 2021 Subjective Reports doing well pain luciano. Worst part is not being able to move around due to traction. She was seen pre-operatively. INR improved to 1.3. She has had multiple DVTs/PEs in the past and will discuss with ortho about when to resume anti-coagulation. She verbalizes no new complaints at this time. Review of Systems Review of Systems: All systems reviewed & are unremarkable except as noted in Subjective Physical Exam Physical Exam: PHYSICAL EXAM General Appearance: WDWN in NAD who is A&O x 3 HEENT: Head is normocephalic/atraumatic; Hearing grossly intact; Mucous membranes moist Neck: Supple; Trachea midline; Neg JVD Heart: RRR with murmur Lungs: CTA in all lung [place] bilaterally; Respirations unlabored; Neg accessory muscle use Abdomen: Soft, non-tender, non-distended; Positive BS x 4 quadrants Extremities: Neg cyanosis or edema; RLE in traction Neurological: Speech clear; Gross motor/sensory function intact; Neg focal neurologic deficits Psychiatric: Appropriate mood/affect Skin: Normal Color; Warm/Dry Results & Data Results & Data ([facility]) Vital Signs (Past 12 Hours) Vital Signs Temp Pulse Pulse Resp BP Pulse Ox 09/10/21 17:08 37 C 90 17 151/83 H 93 09/10/21 15:43 36.9 C 84 18 146/67 H 91 09/10/21 10:55 93 09/10/21 08:27 36.6 C 97 H 18 145/77 H PG Care Time/CCT Total # of Minutes Spent Total Time Spent with Patient: Total time spent is greater than 50% in coordination of care (as documented) at patient's floor/unit and/or counseling patient: Coding Level of Care Code 51360 Subseq Hosp Care Lvl 3 Diagnoses Femur fracture, right S72.331A Encounter type: initial encounter Femur location: shaft Fracture alignment: displaced Fracture morphology: oblique Fracture type: closed UTI (urinary tract infection) N39.0 History of DVT (deep vein thrombosis) Z86.718 High cholesterol E78.00 (1) Femur fracture, right Encounter type: initial encounter Femur location: shaft Fracture alignment: displaced Fracture morphology: oblique Fracture type: closed Qualified Code(s): S72.331A - Displaced oblique fracture of shaft of right femur, initial encounter for closed fracture
[2021-09-10] MEDS ORDERED: PHENYLEPHRINE 100MCG/ML 5ML SYR ONE (18:52)
[2021-09-10] MEDS ORDERED: ePHEDrine sulfate 50 MG/ML SYR ONE (18:52)
[2021-09-10] MEDS ORDERED: SODIUM CHLORIDE 0.9% 250 ML IV PRN (20:30)
--- NOTE | 2021-09-10 22:10 | Post Operative Brief Note ---
Immediate Post Op Note v1 Date of Surgery September 10, 2021 Pre & Post Diagnosis Operation Date: 09/10/21 16:05 Pre-Op Diagnosis: Right displaced angulated subtrochanteric femur Fracture Post-Op Diagnosis: Right displaced angulated subtrochanteric femur Fracture I identified the patient and participated in the time-out.: Yes Procedure Operation Date: 09/10/21 16:05 Actual Procedures p open reduction internal fixation right displaced angulated subtrochanteric femur fracture with Synthes 360 mm x 11 mm Long Troch fixation Nail and Synthes 1.7 mm cobalt chrome cable right(Right) - Chris Vivas DO Surgeon Chris Vivas DO Customer Service Sales Associate Venkatesh Mccartney PA-C Estimated Blood Loss 400 Findings Consistent with Post-Op Diagnosis Anesthesia Type General Complications none Disposition Accompanied Patient To Recovery: No
[2021-09-10] MEDS: fentaNYL citrate 100 MCG/2 ML VIAL IV PRN ×3 (22:25→22:38)
[2021-09-10] MEDS: MoRPHine SULFATE 2 MG/ML CARP IV PRN (23:29)
[2021-09-10] MEDS: DOCUSATE SODIUM/SENNA 50/8.6MG TAB PO SCH (23:35)
[2021-09-10] MEDS: ATORVASTATIN 20 MG TAB PO SCH (23:35)
--- NOTE | 2021-09-10 23:36 | Anesthesiology Progress Note ---
Date of Service September 10, 2021 Anesthesia Post Procedure Vital Signs Vital Signs: Temp Pulse Pulse Pulse Resp BP BP 09/10/21 23:19 36.3 C L 81 18 125/74 09/10/21 22:55 75 16 113/54 L 09/10/21 22:45 76 12 127/51 L 09/10/21 22:35 76 12 130/58 L 09/10/21 22:25 76 14 136/62 09/10/21 22:15 75 16 138/64 09/10/21 22:06 36.2 C L 76 12 130/75 09/10/21 17:08 37 C 90 17 151/83 H 09/10/21 15:43 36.9 C 84 18 146/67 H 09/10/21 10:55 09/10/21 08:27 36.6 C 97 H 18 145/77 H Pulse Ox 09/10/21 23:19 98 09/10/21 22:55 98 09/10/21 22:45 98 09/10/21 22:35 98 09/10/21 22:25 98 09/10/21 22:15 97 09/10/21 22:06 96 09/10/21 17:08 93 09/10/21 15:43 91 09/10/21 10:55 93 09/10/21 08:27 Pain Intensity Right Hip: Pain Intensity: 8 Transfer of Care Handoff Completed per policy Notes Mental Status: alert / awake / arousable Patient Amnestic to Procedure: Yes Nausea / Vomiting: adequately controlled Pain: adequately controlled Airway Patency, RR, SpO2: stable & adequate BP & HR: stable & adequate Hydration State: stable & adequate Anesthetic Complications: no major complications apparent
[2021-09-10] MEDS: SODIUM CHLORIDE 0.9% 1000ML 1,000 ML IV SCH (23:40)
[2021-09-11] MEDS: oxyCODONE HCL IR 5 MG TAB (IMMEDIATE RELEASE) PO PRN ×4 (01:20→21:17)
--- NOTE | 2021-09-11 02:20 | Operative Report (OR) ---
DATE OF PROCEDURE: 09/10/2021. PREOPERATIVE DIAGNOSIS: Right displaced angulated subtrochanteric femur fracture. POSTOPERATIVE DIAGNOSIS: Right displaced angulated subtrochanteric femur fracture. PROCEDURE: Open reduction and internal fixation of right displaced angulated subtrochanteric femur fracture with Synthes 360 x 11 mm long trochanteric fixation nail with locking screws and Synthes 1.7 mm [place] chrome cable. SURGEON: Chris Vivas DO COUNTER TOP MAKER: Venkatesh Mccartney PA-C, who was present for patient positioning, sterile prep and drape, management of retractors and instruments. He was present through the critical portions of the case including wound closure, application of sterile dressing and transport of the patient to recovery. ANESTHESIA: General with local. SPECIMENS: None. DRAINS: None. COMPLICATIONS: None. BLOOD LOSS: 400 mL. PERTINENT HISTORY: This is an 81-year-old female who sustained a mechanical fall on her right proximal femur. She had inability to ambulate. She had obvious deformity of her hip and upper thigh and was then transported to [facility] where she was evaluated and radiographs were obtained, noting an angulated displaced subtrochanteric right femur fracture. The patient was admitted to the hospitalist service and she was managed accordingly for her medical issues and optimized for surgery while staying off of her Coumadin. Her INR was approximately 2.0 when she came into the hospital and had to wait from the time of admission until the current time before we could proceed with surgery safely. The patient was then scheduled for surgery as indicated. All potential risks, benefits, complications, alternatives, rehab potential for incomplete relief of symptoms, need for further surgery, DVT, PE, , persistent pain, swelling, scarring, weakness, neurovascular injury, wound complications, hardware failure, nonunion, malunion, and bone fracture were discussed with the patient. The patient decided to proceed with the procedure as indicated. DESCRIPTION OF PROCEDURE: The patient was transferred to the operative suite. The proper site was identified. The consent was reviewed, the patient was then anesthetized and an endotracheal tube was placed. The patient then transferred to the fracture table where the lower extremity was placed in fracture table traction and the nonoperative leg was placed in the well leg martinez. All bony prominences were properly padded and protected. The padded post was placed in the perineum and the patient was positioned appropriately. Next the right leg was placed on traction and reduction of the fracture was performed under fluoroscopic control. Next the operative hip was then sterilely prepped and draped in the usual fashion. Next a 10-blade scalpel incision was used to make an incision proximal to the greater trochanter. Hemostasis was achieved electrocautery. Full-thickness skin flaps were retracted using skin rakes. The incision was deepened through the subcutaneous tissue and muscular fascia and the tip of the greater trochanter was then palpated followed by placement of a guide pin under fluoroscopic control driven into the greater trochanter down to the level of the less trochanter. This was confirmed in AP and lateral projections followed by placement of the proximal reamer over the cannulated guide pin. Next the reamer was then removed using the soft tissue protector, which was also removed. Next the ball tip guide jazmine was placed into the proximal femur under fluoroscopic control confirmed with AP and lateral fluoroscope projections. Significant difficulty was noted with passing the ball-tipped guide jazmine due to the significant displacement, angulation and comminution of the fracture. Multiple attempts were made to pass the guidewire from the proximal fragment to the distal fragment. Next decision was made to open the proximal femur with a direct exposure over the fracture. A 10 blade scalpel was used to make an incision in the lateral thigh. Incision was deepened through the skin and subcutaneous tissue. Skin rakes were applied. Meticulous hemostasis was achieved with electrocautery. The iliotibial band was then incised in line with the skin incision with a 10 blade scalpel. The vastus lateralis was then bluntly dissected with Ribera scissors along its inferior border and then elevated over the fracture with a blunt large Hohmann. The fracture was then irrigated and gently debrided with a curette to expose the fracture fragments. The fracture fragments were then reduced using manual manipulation and application of a Dottie clamp. Next the ball-tipped guide jazmine was then passed across the fracture and into the distal femur to the level of the suprapatellar region. This was confirmed with image intensification in AP and lateral projections. Next a provisional 1.7 mm cable was then passed circumferentially around the fracture taking care to make certain that the passing guide remained directly on bone as encircled the femur. This stabilized the fracture into near anatomic reduction and stabilization. Next the trochanteric nail was then passed over the guide jazmine into the femur, the guide jazmine was removed and then under fluoroscopic control the appropriate level of the femoral nail was then placed in AP and lateral projections. Next the targeting device was then fixed to the driving handle. Next the tissue protector and cannulated guide system was then passed into the soft tissue until it was securely fixed against the lateral aspect of the femoral cortex. Position was confirmed under C-arm fluoroscopy Next the guide pin for the spiral blade was driven into the lateral aspect of the femur confirming this with AP lateral projections until the guide pin was in the center of the femoral neck and head approximately 5 mm from the subcortical bone of the femur. Next the spiral blade was then measured and then the lateral cortex was then drilled with the cortex reamer followed by use of the triple reamer with the depth stop set at appropriate depth. The spiral blade fixation was then inserted over the cannulated guide jazmine under fluoroscopic control. The femoral neck and head were then gently compressed and then locked proximally with the flexible screwdriver. Next the spiral blade was then disengaged from its insertion handle, insertion handle was then removed and the guide pin was removed from the femoral neck and head. Next attention was then directed to the distal aspect of the titanium nail at the level of the knee. After perfect circles were visualized on the lateral view, a 10 blade scalpel was then used to make an incision over the static and dynamic holes for distal locking. Freehand technique for drilling the static and dynamic screw fixation was then employed under live fluoroscopic assistance. Next the locking screw holes were then drilled, measured and then an appropriate length screws were placed to lock the distal aspect of the nail. Final x-rays were obtained in AP and lateral projections. All incisions were then copiously irrigated with sterile normal saline. The 1.7 mm cerclage cable was then tensioned to approximately 45 to 50 pounds of pressure. The cable was then crimped and cut flush. The lateral incision site was then copiously irrigated with sterile saline until clear. The vastus lateralis was then allowed to retract to its normal anatomic position. The iliotibial band was then closed using interrupted #1 Vicryl sutures. The dermis was closed using buried and up to 2-0 Vicryl and the skin was closed using skin michaela. The proximal gluteus fascia was then closed using interrupted #1 Vicryl, the dermis was closed using buried interrupted 2-0 Vicryl sutures and the skin was then closed using skin michaela. A sterile compressive dressing consisting of Xeroform gauze, sterile 4 x 4's and foam tape was applied. The patient was then awakened, transferred to the hospital bed and taken to recovery in stable condition. Leg lengths were noted to be equal with normal symmetric internal and external rotation. Job ID: [id number] [facility]
[2021-09-11] MEDS: cefTRIAXone SODIUM 1,000 MG in DEXTROSE 5% 50 ML IV SCH (05:44)
--- NOTE | 2021-09-11 06:46 | Fluoroscopy Report ---
FL hip RT 2-3V CLINICAL HISTORY: RIGHT LONG TROCH NAIL. COMPARISON STUDY: 09/08/2021 FLUOROSCOPY TIME: 9 minutes 58 seconds. FLUOROSCOPIC IMAGES: 6 FINDINGS: The patient is status post intratrochanteric nailing and placement of a longstem femoral sh aft jazmine securing a subtrochanteric fracture of the femoral shaft.. IMPRESSION: Status post internal fixation. ACT 112: Negative or not required by law. Electronically signed by: Moi Lucio M.D. 09/11/2021 6:45 AM
[2021-09-11 07:52] LABS: Hematocrit (blood only) 26.3 % (37-47); Hemoglobin 8.4 g/dL (12.0-16.0); Immature Granulocytes # (auto) 0.01 K/uL (0.00-0.02); Immature Granulocytes % (auto) 0.2 %; Lymphocytes # (auto) 0.65 K/uL (1.2-3.4); Lymphocytes % (auto) 9.9 %; Mean Corpuscular Hemoglobin 30.4 pg (25-34); Mean Corpuscular Hgb Conc 31.9 g/dL (32-36); Mean Corpuscular Volume 95.3 fL (80-100); Mean Platelet Volume 9.4 fL (7.4-10.4); Monocytes # (auto) 0.76 K/uL (0.11-0.59); Monocytes % (auto) 11.6 %; Neutrophils # (auto) 5.13 K/uL (1.4-6.5); Neutrophils % (auto) 78.3 %; Platelet Count 173 K/uL (130-400); RDW Coefficient of Variation 13.4 % (11.5-14.5); RDW Standard Deviation 46.4 fL (36.4-46.3); Red Blood Count 2.76 M/uL (4.2-5.4); White Blood Count 6.55 K/uL (4.8-10.8)
[2021-09-11 08:25] LABS: BUN Creatinine Ratio 35.8 (10-20); Creatinine Clr Calc Pharmacy 77.2 ml/min; Est GFR (African American) 104.5 ml/min; Est GFR (Non-African American) 90.2 ml/min; Potassium 4.2 mmol/L (3.5-5.1)
[2021-09-11] MEDS: SODIUM CHLORIDE 0.9% 1000ML 1,000 ML IV SCH (11:55)
--- NOTE | 2021-09-11 13:41 | Orthopedic Progress Note ---
Date of Service September 11, 2021 Assessment & Plan (1) Femur fracture, right: Plan: POD 1 s/p Right TFN PT/OT Protocols. TTWB. DVT prophylaxis - Restart Coumadin today. Lovenox bridging likely. Pain management as written. DC planning - Family planning on taking pt home with home health PT. Admission and Anticipated Discharge Date Admission Date: September 09, 2021 Subjective POD 1 Pt sitting up in bed eating lunch. Underwent PT this AM briefly. Pt states she feels weak today but otherwise feels pretty good. No other complaints. Pain controlled. Physical Exam Physical Exam: Dressings C/D/I. Thigh with swelling but soft. Calves soft, NT. NV intact. Toes mobile. Results & Data ([facility]) Vital Signs (Past 12 Hours) Vital Signs Temp Pulse Resp BP Pulse Ox 09/11/21 11:34 36.9 C 99 H 16 100/66 91 09/11/21 07:52 36.9 C 88 16 110/57 L 94 09/11/21 04:03 36.3 C L 91 H 17 119/77 98 09/11/21 02:18 36.3 C L 78 16 101/69 97 Laboratory Results Laboratory Results WBC 6.55 K/uL (4.8-10.8) 09/11/21 07:18 RBC 2.76 M/uL (4.2-5.4) L 09/11/21 07:18 Hgb 8.4 g/dL (12.0-16.0) L 09/11/21 07:18 Hct 26.3 % (37-47) L 09/11/21 07:18 MCV 95.3 fL (80-100) 09/11/21 07:18 MCH 30.4 pg (25-34) 09/11/21 07:18 MCHC 31.9 g/dL (32-36) L 09/11/21 07:18 RDW Std Deviation 46.4 fL (36.4-46.3) H 09/11/21 07:18 RDW Coeff of Alejandro 13.4 % (11.5-14.5) 09/11/21 07:18 Plt Count 173 K/uL (130-400) 09/11/21 07:18 MPV 9.4 fL (7.4-10.4) 09/11/21 07:18 Immature Gran % (Auto) 0.2 % 09/11/21 07:18 Neut % (Auto) 78.3 % 09/11/21 07:18 Lymph % (Auto) 9.9 % 09/11/21 07:18 [place] % (Auto) 11.6 % 09/11/21 07:18 Eos % (Auto) 0.0 % 09/11/21 07:18 Baso % (Auto) 0.0 % 09/11/21 07:18 Neut # (Auto) 5.13 K/uL (1.4-6.5) 09/11/21 07:18 Lymph # (Auto) 0.65 K/uL (1.2-3.4) L 09/11/21 07:18 [place] # (Auto) 0.76 K/uL (0.11-0.59) H 09/11/21 07:18 Eos # (Auto) 0.00 K/uL (0-0.5) 09/11/21 07:18 Baso # (Auto) 0.00 K/uL (0-0.2) 09/11/21 07:18 Immature Gran # (Auto) 0.01 K/uL (0.00-0.02) 09/11/21 07:18 PT 12.6 Seconds (9.0-12.0) H 09/10/21 06:48 INR 1.3 (0.9-1.1) H 09/10/21 06:48 APTT 32.4 Seconds (21.0-31.0) H 09/09/21 05:18 PTT Ratio 1.2 09/09/21 05:18 Sodium 141 mmol/L (136-145) 09/11/21 07:18 Potassium 4.2 mmol/L (3.5-5.1) 09/11/21 07:18 Chloride 107 mmol/L (98-107) 09/11/21 07:18 Carbon Dioxide 28 mmol/L (21-32) 09/11/21 07:18 Anion Gap 6.0 (3-11) 09/11/21 07:18 BUN 18 mg/dl (7-18) 09/11/21 07:18 Creatinine 0.51 mg/dl (0.6-1.2) L 09/11/21 07:18 Est Cr Clr Drug Dosing 77.2 ml/min 09/11/21 07:18 Est GFR ( Amer) 104.5 ml/min 09/11/21 07:18 Est GFR (Non-Af Amer) 90.2 ml/min 09/11/21 07:18 BUN/Creatinine Ratio 35.8 (10-20) H 09/11/21 07:18 Glucose 218 mg/dl (70-99) H 09/11/21 07:18 POC Glucose 217 mg/dl (70-99) H 09/11/21 09:02 Estimat Average Glucose 146 mg/dl 09/08/21 21:45 Hemoglobin A1c 6.7 % (4.5-5.6) H 09/08/21 21:45 Calcium 8.0 mg/dl (8.5-10.1) L 09/11/21 07:18 Total Bilirubin 0.5 mg/dl (0.2-1) 09/09/21 05:18 AST 19 U/L (15-37) 09/09/21 05:18 ALT 26 (12-78) 09/09/21 05:18 Alkaline Phosphatase 82 U/L (45-117) 09/09/21 05:18 Total Creatine Kinase 320 U/L (26-192) H 09/09/21 05:18 Total Protein 6.5 gm/dl (6.4-8.2) 09/09/21 05:18 Albumin 3.2 gm/dl (3.4-5.0) L 09/09/21 05:18 Globulin 3.3 gm/dl (2.5-4.0) 09/09/21 05:18 Albumin/Globulin Ratio 1.0 (0.9-2) 09/09/21 05:18 25-OH Vitamin D Total 18.7 ng/ml (30-100) L 09/11/21 07:18 Urine Color Yellow 09/08/21 21:45 Urine Appearance Cloudy (Clear) A 09/08/21 21:45 Urine pH 5.0 (4.5-7.5) 09/08/21 21:45 Ur Specific [place] 1.021 (1.000-1.030) 09/08/21 21:45 Urine Protein Trace (Negative) H 09/08/21 21:45 Urine Glucose (UA) 2+ (Negative) H 09/08/21 21:45 Urine Ketones Trace (Negative) H 09/08/21 21:45 Urine Blood Negative (Negative) 09/08/21 21:45 Urine Nitrite Positive (Negative) A 09/08/21 21:45 Urine Bilirubin Negative (Negative) 09/08/21 21:45 Urine Urobilinogen Negative (Negative) 09/08/21 21:45 Ur Leukocyte Esterase Trace (Negative) H 09/08/21 21:45 Urine WBC (Auto) 10-30 /hpf (0-5) H 09/08/21 21:45 Urine RBC (Auto) 0-4 /hpf (0-4) 09/08/21 21:45 U Hyaline Cast (Auto) 1-5 /lpf (0-5) 09/08/21 21:45 U Epithel Cells (Auto) 0-5 /lpf (0-5) 09/08/21 21:45 Urine Bacteria (Auto) 4+ (Negative) H 09/08/21 21:45 Urine Yeast Not Reportable 09/08/21 21:45 SARS-CoV-2, RNA, NAAT NEGATIVE (NEGATIVE) 09/08/21 21:55 Blood Type A Negative 09/08/21 22:28 Blood Type Recheck A Negative 09/10/21 06:48 Antibody Screen NEGATIVE 09/08/21 22:28 Crossmatch See Detail 09/08/21 22:28 Impressions Electronically signed by: Iggy Toribio M.D. 09/09/2021 10:19 AM Hip X-Ray 09/10/21 16:24 FL hip RT 2-3V CLINICAL HISTORY: RIGHT LONG TROCH NAIL. COMPARISON STUDY: 09/08/2021 FLUOROSCOPY TIME: 9 minutes 58 seconds. FLUOROSCOPIC IMAGES: 6 FINDINGS: The patient is status post intratrochanteric nailing and placement of a longstem femoral shaft jazmine securing a subtrochanteric fracture of the femoral shaft.. IMPRESSION: Status post internal fixation. ACT 112: Negative or not required by law. Electronically signed by: Moi Lucio M.D. 09/11/2021 6:45 AM (1) Femur fracture, right Encounter type: initial encounter Femur location: shaft Fracture alignment: displaced Fracture morphology: oblique Fracture type: closed Qualified Code(s): S72.331A - Displaced oblique fracture of shaft of right femur, initial encounter for closed fracture
[2021-09-11 14:01] LABS: Hematocrit (blood only) 25.3 % (37-47); Hemoglobin 8.3 g/dL (12.0-16.0)
[2021-09-11] MEDS ORDERED: ENOXAPARIN 1 MG/KG SQ SCH (15:45)
[2021-09-11] MEDS: WARFARIN SOD 5 MG TAB PO SCH (16:56)
[2021-09-11] MEDS: ENOXAPARIN 80 MG/0.8 ML SYR SQ SCH (16:59)
--- NOTE | 2021-09-11 19:51 | Hospitalist Progress Note ---
Date of Service September 11, 2021 Assessment & Plan (1) Femur fracture, right: Plan: - XR - displaced subtrochanteric fracture of the proximal R femur - S/P ORIF with nailing -- EBL 400 mL - Pain and bowel regimen - Vit D level checked and low at 18 and will add supplementation given fracture - PT/OT post-operatively - patient is hoping she does well enough to go home with services and may be a good candidate pending evaluations (2) Acute blood loss anemia: Plan: - Hgb dropped from 10 to 8 - repeat in afternoon showing stability but will recheck in AM - Suspect due to fracture and surgical losses (3) UTI (urinary tract infection): Plan: - UA grossly infected but pt is asymptomatic (uncomplicated) - Rocephin 1g IV daily - given surgical intervention can treat x 5 days then stop - Urine culture - e. 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 14 years ago - Reports she is normally well regulated on warfarin and rarely needs dosage adjustments and normally only needs once a month INR checks - Restarting warfarin -- Bridge given multiple DVT/PE in the past (5) High cholesterol: Plan: - Also H/O TIA - Continue Atorvastatin Plan: Disposition: PT/OT; would like to return home with home services and may be a good candidate pending evaluations/pain control -- Possible D/C Friday? Admission and Anticipated Discharge Date Admission Date: September 09, 2021 Subjective Seen on multiple occassions today. Hurley she did not do well with PT/Ot today as she was fearful of falling but is motivated to do better. Also was having more pain this AM. Pain seemed to improve through the day. She would still like to return home and I think she can be a good candidate for that. Her Hgb did reduce down this AM but stable this afternoon and will recheck in AM. She is tolerating a diet. She reported no BM today and did discuss importance of bowel regimen. Updated family at bedside Review of Systems Review of Systems: All systems reviewed & are unremarkable except as noted in Subjective Physical Exam Physical Exam: PHYSICAL EXAM General Appearance: WDWN in NAD who is A&O x 3 HEENT: Head is normocephalic/atraumatic; Hearing grossly intact; Mucous membranes moist Neck: Supple; Trachea midline; Neg JVD Heart: RRR with murmur Lungs: CTA in all lung cabello bilaterally; Respirations unlabored; Neg accessory muscle use Abdomen: Soft, non-tender, non-distended; Positive BS x 4 quadrants Extremities: Neg cyanosis or edema; R hip with surgical dressing in place - did not remove Neurological: Speech clear; Gross motor/sensory function intact; Neg focal neurologic deficits Psychiatric: Appropriate mood/affect Skin: Normal Color; Warm/Dry Results & Data Results & Data ([facility]) Vital Signs (Past 12 Hours) Vital Signs Temp Pulse Resp BP Pulse Ox 09/11/21 16:14 36.8 C 91 H 16 108/56 L 91 09/11/21 11:34 36.9 C 99 H 16 100/66 91 09/11/21 07:52 36.9 C 88 16 110/57 L 94 PG Care Time/CCT Total # of Minutes Spent Total Time Spent with Patient: Total time spent is greater than 50% in coordination of care (as documented) at patient's floor/unit and/or counseling patient: Coding Level of Care Code 06336 Subseq Hosp Care Lvl 3 Diagnoses Femur fracture, right S72.331A Encounter type: initial encounter Femur location: shaft Fracture alignment: displaced Fracture morphology: oblique Fracture type: closed UTI (urinary tract infection) N39.0 History of DVT (deep vein thrombosis) Z86.718 High cholesterol E78.00 Acute blood loss anemia D62 (1) Femur fracture, right Encounter type: initial encounter Femur location: shaft Fracture alignment: displaced Fracture morphology: oblique Fracture type: closed Qualified Code(s): S72.331A - Displaced oblique fracture of shaft of right femur, initial encounter for closed fracture
[2021-09-11] MEDS: ACETAMINOPHEN 325 MG TAB PO SCH (21:15)
[2021-09-11] MEDS: ATORVASTATIN 20 MG TAB PO SCH (21:16)
[2021-09-11] MEDS: DOCUSATE SODIUM/SENNA 50/8.6MG TAB PO SCH (21:17)
[2021-09-12] MEDS: cefTRIAXone SODIUM 1,000 MG in DEXTROSE 5% 50 ML IV SCH (05:53)
[2021-09-12] MEDS: ENOXAPARIN 80 MG/0.8 ML SYR SQ SCH ×2 (05:53→17:44)
[2021-09-12 06:11] LABS: Basophils # (auto) 0.03 K/uL (0-0.2); Basophils % (auto) 0.5 %; Eosinophils # (auto) 0.08 K/uL (0-0.5); Eosinophils % (auto) 1.3 %; Hematocrit (blood only) 23.5 % (37-47); Hemoglobin 7.6 g/dL (12.0-16.0); Immature Granulocytes # (auto) 0.02 K/uL (0.00-0.02); Immature Granulocytes % (auto) 0.3 %; Lymphocytes # (auto) 1.29 K/uL (1.2-3.4); Lymphocytes % (auto) 20.5 %; Mean Corpuscular Hemoglobin 30.9 pg (25-34); Mean Corpuscular Hgb Conc 32.3 g/dL (32-36); Mean Corpuscular Volume 95.5 fL (80-100); Mean Platelet Volume 9.5 fL (7.4-10.4); Monocytes # (auto) 1.04 K/uL (0.11-0.59); Monocytes % (auto) 16.5 %; Neutrophils # (auto) 3.84 K/uL (1.4-6.5); Neutrophils % (auto) 60.9 %; Platelet Count 178 K/uL (130-400); RDW Coefficient of Variation 13.8 % (11.5-14.5); RDW Standard Deviation 48.2 fL (36.4-46.3); Red Blood Count 2.46 M/uL (4.2-5.4)
[2021-09-12 06:19] LABS: INR 1.2 (0.9-1.1); Prothrombin Time 12.4 Seconds (9.0-12.0)
[2021-09-12 07:00] LABS: RBC Morphology Unremarkable
[2021-09-12] MEDS ORDERED: SODIUM CHLORIDE 0.9% 250 ML IV PRN (09:17)
[2021-09-12] MEDS: oxyCODONE HCL IR 5 MG TAB (IMMEDIATE RELEASE) PO PRN ×3 (09:21→21:05)
[2021-09-12] MEDS: CHOLECALCIFEROL 1,000 UNITS 25 MCG TAB PO SCH (09:22)
[2021-09-12] MEDS: ACETAMINOPHEN 325 MG TAB PO SCH ×3 (09:22→21:01)
--- NOTE | 2021-09-12 11:49 | Orthopedic Progress Note ---
Date of Service September 12, 2021 Assessment & Plan (1) Femur fracture, right: Plan: POD 2 s/p Right TFN PT/OT Protocols. TTWB. DVT prophylaxis - Restarted Coumadin. Lovenox bridging until INR therapeutic Pain management as written. Follow H&H. DC planning - Family planning on taking pt home with home health PT. Admission and Anticipated Discharge Date Admission Date: September 09, 2021 Subjective Postop day 2 Patient sitting up in bed awake and alert. Currently receiving 1 unit of PRBCs today. Hemoglobin dropped to 7.4. No complaints this morning. Pain is controlled. Physical Exam Physical Exam: Dressings have been changed. Dressings are clean, dry, and intact. No erythema around the lateral thigh. Thigh is swollen but soft. Calves are soft and nontender. Neurovascular is intact. Toes are mobile. Results & Data ([facility]) Vital Signs (Past 12 Hours) Vital Signs Temp Pulse Pulse Resp BP BP BP 09/12/21 11:22 36.7 C 84 16 119/73 09/12/21 07:27 36.3 C L 86 16 132/53 L 09/12/21 05:03 09/12/21 03:42 36.6 C 83 18 136/77 Pulse Ox Pulse Ox 09/12/21 11:22 91 09/12/21 07:27 90 09/12/21 05:03 93 09/12/21 03:42 93 Laboratory Results Laboratory Results WBC 6.30 K/uL (4.8-10.8) 09/12/21 05:36 RBC 2.46 M/uL (4.2-5.4) L 09/12/21 05:36 Hgb 7.6 g/dL (12.0-16.0) L 09/12/21 05:36 Hct 23.5 % (37-47) L 09/12/21 05:36 MCV 95.5 fL (80-100) 09/12/21 05:36 MCH 30.9 pg (25-34) 09/12/21 05:36 MCHC 32.3 g/dL (32-36) 09/12/21 05:36 RDW Std Deviation 48.2 fL (36.4-46.3) H 09/12/21 05:36 RDW Coeff of Alejandro 13.8 % (11.5-14.5) 09/12/21 05:36 Plt Count 178 K/uL (130-400) 09/12/21 05:36 MPV 9.5 fL (7.4-10.4) 09/12/21 05:36 Immature Gran % (Auto) 0.3 % 09/12/21 05:36 Neut % (Auto) 60.9 % 09/12/21 05:36 Lymph % (Auto) 20.5 % 09/12/21 05:36 [place] % (Auto) 16.5 % 09/12/21 05:36 Eos % (Auto) 1.3 % 09/12/21 05:36 Baso % (Auto) 0.5 % 09/12/21 05:36 Neut # (Auto) 3.84 K/uL (1.4-6.5) 09/12/21 05:36 Lymph # (Auto) 1.29 K/uL (1.2-3.4) 09/12/21 05:36 [place] # (Auto) 1.04 K/uL (0.11-0.59) H 09/12/21 05:36 Eos # (Auto) 0.08 K/uL (0-0.5) 09/12/21 05:36 Baso # (Auto) 0.03 K/uL (0-0.2) 09/12/21 05:36 Immature Gran # (Auto) 0.02 K/uL (0.00-0.02) 09/12/21 05:36 RBC Morphology Unremarkable 09/12/21 05:36 PT 12.4 Seconds (9.0-12.0) H 09/12/21 05:36 INR 1.2 (0.9-1.1) H 09/12/21 05:36 APTT 32.4 Seconds (21.0-31.0) H 09/09/21 05:18 PTT Ratio 1.2 09/09/21 05:18 Sodium 141 mmol/L (136-145) 09/11/21 07:18 Potassium 4.2 mmol/L (3.5-5.1) 09/11/21 07:18 Chloride 107 mmol/L (98-107) 09/11/21 07:18 Carbon Dioxide 28 mmol/L (21-32) 09/11/21 07:18 Anion Gap 6.0 (3-11) 09/11/21 07:18 BUN 18 mg/dl (7-18) 09/11/21 07:18 Creatinine 0.51 mg/dl (0.6-1.2) L 09/11/21 07:18 Est Cr Clr Drug Dosing 77.2 ml/min 09/11/21 07:18 Est GFR ( Amer) 104.5 ml/min 09/11/21 07:18 Est GFR (Non-Af Amer) 90.2 ml/min 09/11/21 07:18 BUN/Creatinine Ratio 35.8 (10-20) H 09/11/21 07:18 Glucose 218 mg/dl (70-99) H 09/11/21 07:18 POC Glucose 147 mg/dl (70-99) H 09/12/21 09:01 Estimat Average Glucose 146 mg/dl 09/08/21 21:45 Hemoglobin A1c 6.7 % (4.5-5.6) H 09/08/21 21:45 Calcium 8.0 mg/dl (8.5-10.1) L 09/11/21 07:18 Total Bilirubin 0.5 mg/dl (0.2-1) 09/09/21 05:18 AST 19 U/L (15-37) 09/09/21 05:18 ALT 26 (12-78) 09/09/21 05:18 Alkaline Phosphatase 82 U/L (45-117) 09/09/21 05:18 Total Creatine Kinase 320 U/L (26-192) H 09/09/21 05:18 Total Protein 6.5 gm/dl (6.4-8.2) 09/09/21 05:18 Albumin 3.2 gm/dl (3.4-5.0) L 09/09/21 05:18 Globulin 3.3 gm/dl (2.5-4.0) 09/09/21 05:18 Albumin/Globulin Ratio 1.0 (0.9-2) 09/09/21 05:18 25-OH Vitamin D Total 18.7 ng/ml (30-100) L 09/11/21 07:18 Urine Color Yellow 09/08/21 21:45 Urine Appearance Cloudy (Clear) A 09/08/21 21:45 Urine pH 5.0 (4.5-7.5) 09/08/21 21:45 Ur Specific [place] 1.021 (1.000-1.030) 09/08/21 21:45 Urine Protein Trace (Negative) H 09/08/21 21:45 Urine Glucose (UA) 2+ (Negative) H 09/08/21 21:45 Urine Ketones Trace (Negative) H 09/08/21 21:45 Urine Blood Negative (Negative) 09/08/21 21:45 Urine Nitrite Positive (Negative) A 09/08/21 21:45 Urine Bilirubin Negative (Negative) 09/08/21 21:45 Urine Urobilinogen Negative (Negative) 09/08/21 21:45 Ur Leukocyte Esterase Trace (Negative) H 09/08/21 21:45 Urine WBC (Auto) 10-30 /hpf (0-5) H 09/08/21 21:45 Urine RBC (Auto) 0-4 /hpf (0-4) 09/08/21 21:45 U Hyaline Cast (Auto) 1-5 /lpf (0-5) 09/08/21 21:45 U Epithel Cells (Auto) 0-5 /lpf (0-5) 09/08/21 21:45 Urine Bacteria (Auto) 4+ (Negative) H 09/08/21 21:45 Urine Yeast Not Reportable 09/08/21 21:45 SARS-CoV-2, RNA, NAAT NEGATIVE (NEGATIVE) 09/08/21 21:55 Blood Type A Negative 09/12/21 09:26 Blood Type Recheck A Negative 09/10/21 06:48 Antibody Screen NEGATIVE 09/12/21 09:26 Crossmatch See Detail 09/12/21 09:26 (1) Femur fracture, right Encounter type: initial encounter Femur location: shaft Fracture alignment: displaced Fracture morphology: oblique Fracture type: closed Qualified Code(s): S72.331A - Displaced oblique fracture of shaft of right femur, initial encounter for closed fracture
--- NOTE | 2021-09-12 12:01 | Hospitalist Progress Note ---
Date of Service September 12, 2021 Assessment & Plan (1) Femur fracture, right: Plan: - XR - displaced subtrochanteric fracture of the proximal R femur - S/P ORIF with nailing on 09/10 -- EBL 400 mL - Pain and bowel regimen - Vit D level checked and low at 18 and will add supplementation given fracture - PT/OT post-operatively - patient is hoping she does well enough to go home with services and may be a good candidate pending evaluations -- Anticipate she will do better as we get a bit further out from surgery and good pain control (2) Acute blood loss anemia: Plan: - Hgb dropped from 10 to 8 and now 7.4 - Suspect due to fracture and surgical losses - Transfuse 1 unit and monitor H&H - no active signs of bleeding and suspect this is from losses (3) UTI (urinary tract infection): Plan: - UA grossly infected but pt is asymptomatic (uncomplicated) - Rocephin 1g IV daily - given surgical intervention can treat x 5 days then stop - Urine culture - e. 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 14 years ago - Reports she is normally well regulated on warfarin and rarely needs dosage adjustments and normally only needs once a month INR checks - Restarting warfarin -- Bridge given multiple DVT/PE in the past - if Hgb stays low consider removal of bridge (5) High cholesterol: Plan: - Also H/O TIA - Continue Atorvastatin Plan: Disposition: PT/OT; would like to return home with home services and may be a good candidate pending evaluations/pain control -- Good family support; a lot of different assistive devices -- Possible D/C Friday? but will better determine pending evals Admission and Anticipated Discharge Date Admission Date: September 09, 2021 Subjective Reports her pain is doing a bit better today compared to yesterday but states she is still "sore". Hgb dropped to 7.4 with softer BPs and visible weakness as she struggled to pull a stick of gum from the package. 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 Plans to return home on discharge and will work on getting her strength up Review of Systems Review of Systems: All systems reviewed & are unremarkable except as noted in Subjective Physical Exam Physical Exam: PHYSICAL EXAM General Appearance: WDWN in NAD who is A&O x 3 HEENT: Head is normocephalic/atraumatic; Hearing grossly intact; Mucous membranes moist Neck: Supple; Trachea midline; Neg JVD Heart: RRR with murmur Lungs: CTA in all lung cabello bilaterally; Respirations unlabored; Neg accessory muscle use Abdomen: Soft, non-tender, non-distended; Positive BS x 4 quadrants Extremities: Neg cyanosis or edema; R hip with surgical dressing in place - did not remove but no signs of saturated dressings Neurological: Speech clear; Gross motor/sensory function intact; Neg focal neurologic deficits Psychiatric: Appropriate mood/affect Skin: Normal Color; Warm/Dry Results & Data Results & Data ([facility]) Vital Signs (Past 12 Hours) Vital Signs Temp Pulse Pulse Resp BP BP BP 09/12/21 11:39 36.6 C 82 18 94/57 L 09/12/21 11:22 36.7 C 84 16 119/73 09/12/21 07:27 36.3 C L 86 16 132/53 L 09/12/21 05:03 09/12/21 03:42 36.6 C 83 18 136/77 Pulse Ox Pulse Ox 09/12/21 11:39 95 09/12/21 11:22 91 09/12/21 07:27 90 09/12/21 05:03 93 09/12/21 03:42 93 PG Care Time/CCT Total # of Minutes Spent Total Time Spent with Patient: Total time spent is greater than 50% in coordination of care (as documented) at patient's floor/unit and/or counseling patient: Coding Level of Care Code 76197 Subseq Hosp Care Lvl 3 Diagnoses Femur fracture, right S72.331A Encounter type: initial encounter Femur location: shaft Fracture alignment: displaced Fracture morphology: oblique Fracture type: closed Acute blood loss anemia D62 UTI (urinary tract infection) N39.0 History of DVT (deep vein thrombosis) Z86.718 High cholesterol E78.00 (1) Femur fracture, right Encounter type: initial encounter Femur location: shaft Fracture alignment: displaced Fracture morphology: oblique Fracture type: closed Qualified Code(s): S72.331A - Displaced oblique fracture of shaft of right femur, initial encounter for closed fracture
[2021-09-12] MEDS: WARFARIN SOD 5 MG TAB PO SCH (15:24)
[2021-09-12] MEDS: DOCUSATE SODIUM/SENNA 50/8.6MG TAB PO SCH (21:00)
[2021-09-12] MEDS: ATORVASTATIN 20 MG TAB PO SCH (21:02)
[2021-09-13] MEDS: oxyCODONE HCL IR 5 MG TAB (IMMEDIATE RELEASE) PO PRN ×3 (03:29→20:00)
[2021-09-13] MEDS: cefTRIAXone SODIUM 1,000 MG in DEXTROSE 5% 50 ML IV SCH (04:53)
[2021-09-13] MEDS: ENOXAPARIN 80 MG/0.8 ML SYR SQ SCH ×2 (05:40→18:25)
[2021-09-13 07:37] LABS: Basophils # (auto) 0.02 K/uL (0-0.2); Basophils % (auto) 0.3 %; Eosinophils # (auto) 0.22 K/uL (0-0.5); Eosinophils % (auto) 3.3 %; Hematocrit (blood only) 24.8 % (37-47); Hemoglobin 7.9 g/dL (12.0-16.0); Immature Granulocytes # (auto) 0.01 K/uL (0.00-0.02); Immature Granulocytes % (auto) 0.1 %; Lymphocytes # (auto) 1.35 K/uL (1.2-3.4); Lymphocytes % (auto) 20.1 %; Mean Corpuscular Hemoglobin 30.3 pg (25-34); Mean Corpuscular Hgb Conc 31.9 g/dL (32-36); Mean Platelet Volume 8.9 fL (7.4-10.4); Monocytes # (auto) 0.79 K/uL (0.11-0.59); Monocytes % (auto) 11.8 %; Neutrophils # (auto) 4.31 K/uL (1.4-6.5); Neutrophils % (auto) 64.4 %; Platelet Count 193 K/uL (130-400); RDW Coefficient of Variation 14.6 % (11.5-14.5); RDW Standard Deviation 50.6 fL (36.4-46.3); Red Blood Count 2.61 M/uL (4.2-5.4)
[2021-09-13 07:53] LABS: INR 1.9 (0.9-1.1); Prothrombin Time 18.5 Seconds (9.0-12.0)
[2021-09-13] MEDS: MoRPHine SULFATE 2 MG/ML CARP IV PRN (07:56)
[2021-09-13] MEDS: ACETAMINOPHEN 325 MG TAB PO SCH ×3 (07:56→19:55)
[2021-09-13] MEDS: CHOLECALCIFEROL 1,000 UNITS 25 MCG TAB PO SCH (07:56)
[2021-09-13 08:00] LABS: Polychromasia 1+
--- NOTE | 2021-09-13 09:11 | Orthopedic Progress Note ---
Date of Service September 13, 2021 Assessment & Plan (1) Femur fracture, right: Plan: POD 3 s/p Right TFN PT/OT Protocols. TTWB. DVT prophylaxis - Restarted Coumadin. INR 1.9 today. Lovenox bridging until INR therapeutic as per Med Service Pain management as written. Follow H&H. Slightly improved after one unit transfused. Instructions placed in dc section. Please call with any questions. DC planning - Family planning on taking pt home with home health PT. Admission and Anticipated Discharge Date Admission Date: September 09, 2021 Subjective POD 3 Pt sitting up in bed awake, alert. States she feels a little better after receiving blood transfusion yesterday. Had some pain medication earlier. Feels that her RLE is more difficult to move. We discussed that this can be normal after surgery where the leg "feels like a log" secondary to muscle weakness from surgery etc. Was having some heel discomfort yesterday but heel prop placed under right ankle which has helped. No other complaints. Physical Exam Physical Exam: Dressings intact. Scant drainage on proximal incision. Thigh continues with swelling but soft. Calves soft, NT. Slowly able to do DF/PF of the ankle/foot of the RLE. Sensation intact. Results & Data ([facility]) Vital Signs (Past 12 Hours) Vital Signs Temp Pulse Resp BP BP Pulse Ox Pulse Ox 09/13/21 07:26 36.5 C 81 16 125/75 91 92 09/13/21 03:12 92 09/12/21 23:55 36.6 C 82 16 112/70 93 Laboratory Results Laboratory Results WBC 6.70 K/uL (4.8-10.8) 09/13/21 07:25 RBC 2.61 M/uL (4.2-5.4) L 09/13/21 07:25 Hgb 7.9 g/dL (12.0-16.0) L 09/13/21 07:25 Hct 24.8 % (37-47) L 09/13/21 07:25 MCV 95.0 fL (80-100) 09/13/21 07:25 MCH 30.3 pg (25-34) 09/13/21 07:25 MCHC 31.9 g/dL (32-36) L 09/13/21 07:25 RDW Std Deviation 50.6 fL (36.4-46.3) H 09/13/21 07:25 RDW Coeff of Alejandro 14.6 % (11.5-14.5) H 09/13/21 07:25 Plt Count 193 K/uL (130-400) 09/13/21 07:25 MPV 8.9 fL (7.4-10.4) 09/13/21 07:25 Immature Gran % (Auto) 0.1 % 09/13/21 07:25 Neut % (Auto) 64.4 % 09/13/21 07:25 Lymph % (Auto) 20.1 % 09/13/21 07:25 Lake % (Auto) 11.8 % 09/13/21 07:25 Eos % (Auto) 3.3 % 09/13/21 07:25 Baso % (Auto) 0.3 % 09/13/21 07:25 Neut # (Auto) 4.31 K/uL (1.4-6.5) 09/13/21 07:25 Lymph # (Auto) 1.35 K/uL (1.2-3.4) 09/13/21 07:25 Lake # (Auto) 0.79 K/uL (0.11-0.59) H 09/13/21 07:25 Eos # (Auto) 0.22 K/uL (0-0.5) 09/13/21 07:25 Baso # (Auto) 0.02 K/uL (0-0.2) 09/13/21 07:25 Immature Gran # (Auto) 0.01 K/uL (0.00-0.02) 09/13/21 07:25 RBC Morphology Unremarkable 09/12/21 05:36 Polychromasia 1+ 09/13/21 07:25 PT 18.5 Seconds (9.0-12.0) H 09/13/21 07:25 INR 1.9 (0.9-1.1) H 09/13/21 07:25 APTT 32.4 Seconds (21.0-31.0) H 09/09/21 05:18 PTT Ratio 1.2 09/09/21 05:18 Sodium 141 mmol/L (136-145) 09/11/21 07:18 Potassium 4.2 mmol/L (3.5-5.1) 09/11/21 07:18 Chloride 107 mmol/L (98-107) 09/11/21 07:18 Carbon Dioxide 28 mmol/L (21-32) 09/11/21 07:18 Anion Gap 6.0 (3-11) 09/11/21 07:18 BUN 18 mg/dl (7-18) 09/11/21 07:18 Creatinine 0.51 mg/dl (0.6-1.2) L 09/11/21 07:18 Est Cr Clr Drug Dosing 77.2 ml/min 09/11/21 07:18 Est GFR ( Amer) 104.5 ml/min 09/11/21 07:18 Est GFR (Non-Af Amer) 90.2 ml/min 09/11/21 07:18 BUN/Creatinine Ratio 35.8 (10-20) H 09/11/21 07:18 Glucose 218 mg/dl (70-99) H 09/11/21 07:18 POC Glucose 143 mg/dl (70-99) H 09/13/21 02:58 Estimat Average Glucose 146 mg/dl 09/08/21 21:45 Hemoglobin A1c 6.7 % (4.5-5.6) H 09/08/21 21:45 Calcium 8.0 mg/dl (8.5-10.1) L 09/11/21 07:18 Total Bilirubin 0.5 mg/dl (0.2-1) 09/09/21 05:18 AST 19 U/L (15-37) 09/09/21 05:18 ALT 26 (12-78) 09/09/21 05:18 Alkaline Phosphatase 82 U/L (45-117) 09/09/21 05:18 Total Creatine Kinase 320 U/L (26-192) H 09/09/21 05:18 Total Protein 6.5 gm/dl (6.4-8.2) 09/09/21 05:18 Albumin 3.2 gm/dl (3.4-5.0) L 09/09/21 05:18 Globulin 3.3 gm/dl (2.5-4.0) 09/09/21 05:18 Albumin/Globulin Ratio 1.0 (0.9-2) 09/09/21 05:18 25-OH Vitamin D Total 18.7 ng/ml (30-100) L 09/11/21 07:18 Urine Color Yellow 09/08/21 21:45 Urine Appearance Cloudy (Clear) A 09/08/21 21:45 Urine pH 5.0 (4.5-7.5) 09/08/21 21:45 Ur Specific [place] 1.021 (1.000-1.030) 09/08/21 21:45 Urine Protein Trace (Negative) H 09/08/21 21:45 Urine Glucose (UA) 2+ (Negative) H 09/08/21 21:45 Urine Ketones Trace (Negative) H 09/08/21 21:45 Urine Blood Negative (Negative) 09/08/21 21:45 Urine Nitrite Positive (Negative) A 09/08/21 21:45 Urine Bilirubin Negative (Negative) 09/08/21 21:45 Urine Urobilinogen Negative (Negative) 09/08/21 21:45 Ur Leukocyte Esterase Trace (Negative) H 09/08/21 21:45 Urine WBC (Auto) 10-30 /hpf (0-5) H 09/08/21 21:45 Urine RBC (Auto) 0-4 /hpf (0-4) 09/08/21 21:45 U Hyaline Cast (Auto) 1-5 /lpf (0-5) 09/08/21 21:45 U Epithel Cells (Auto) 0-5 /lpf (0-5) 09/08/21 21:45 Urine Bacteria (Auto) 4+ (Negative) H 09/08/21 21:45 Urine Yeast Not Reportable 09/08/21 21:45 SARS-CoV-2, RNA, NAAT NEGATIVE (NEGATIVE) 09/08/21 21:55 Blood Type A Negative 09/12/21 09:26 Blood Type Recheck A Negative 09/10/21 06:48 Antibody Screen NEGATIVE 09/12/21 09:26 Crossmatch See Detail 09/12/21 09:26 (1) Femur fracture, right Encounter type: initial encounter Femur location: shaft Fracture alignment: displaced Fracture morphology: oblique Fracture type: closed Qualified Code(s): S72.331A - Displaced oblique fracture of shaft of right femur, initial encounter for closed fracture
[2021-09-13] MEDS ORDERED: CALCIUM CARBONATE 500 MG CHEWABLE TAB PO ONE (17:01)
[2021-09-13] MEDS ORDERED: CALCIUM CARBONATE 500 MG CHEWABLE TAB PO PRN (17:01)
[2021-09-13] MEDS: WARFARIN SOD 2.5 MG TAB PO SCH (18:25)
--- NOTE | 2021-09-13 19:07 | Hospitalist Progress Note ---
Date of Service September 13, 2021 Assessment & Plan (1) Femur fracture, right: Plan: - XR - displaced subtrochanteric fracture of the proximal R femur - S/P ORIF with nailing on 09/10 -- EBL 400 mL - Pain and bowel regimen - Vit D level checked and low at 18 and will add supplementation given fracture - PT/OT post-operatively - patient is hoping she does well enough to go home with services and may be a good candidate pending evaluations -- Anticipate she will do better as we get a bit further out from surgery and good pain control (2) Acute blood loss anemia: Plan: - Transfused 1 unit PRBC on 09/12 - Hgb at 7.9 with recheck in AM - clinically improved - Suspect due to fracture and surgical losses - No active signs of bleeding and suspect this is from losses (3) UTI (urinary tract infection): Plan: - UA grossly infected but pt is asymptomatic (uncomplicated) - Rocephin 1g IV daily - given surgical intervention can treat x 5 days then stop - Urine culture - e. 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 14 years ago - Reports she is normally well regulated on warfarin and rarely needs dosage a djustments and normally only needs once a month INR checks - INR at 1.9 -- Bridge given multiple DVT/PE in the past - if Hgb stays low consider removal of bridge (5) High cholesterol: Plan: - Also H/O TIA - Continue Atorvastatin Plan: Disposition: PT/OT; would like to return home with home services and may be a good candidate pending pain control and improved mobility -- Good family support; a lot of different assistive devices -- Possible D/C Friday vs this ? Continue to work with therapy Admission and Anticipated Discharge Date Admission Date: September 09, 2021 Subjective Reports doing better today. A bit more energy and pain getting a bit better. Still has not moved her bowels. Vital signs better since infusion. Tolerating a diet. Verbalizes no new complaints Review of Systems Review of Systems: All systems reviewed & are unremarkable except as noted in Subjective Physical Exam Physical Exam: PHYSICAL EXAM General Appearance: WDWN in NAD who is A&O x 3 HEENT: Head is normocephalic/atraumatic; Hearing grossly intact; Mucous membranes moist Neck: Supple; Trachea midline; Neg JVD Heart: RRR with murmur Lungs: CTA in all lung cabello bilaterally; Respirations unlabored; Neg accessory muscle use Abdomen: Soft, non-tender, non-distended; Positive BS x 4 quadrants Extremities: Neg cyanosis or edema; R hip with surgical dressing in place - did not remove but no signs of saturated dressings some ecchymosis along larger incision and the posterior element of thigh Neurological: Speech clear; Gross motor/sensory function intact; Neg focal neurologic deficits Psychiatric: Appropriate mood/affect Skin: Normal Color; Warm/Dry Results & Data Results & Data ([facility]) Vital Signs (Past 12 Hours) Vital Signs Temp Pulse Resp BP Pulse Ox Pulse Ox 09/13/21 15:00 36.6 C 84 20 132/81 92 09/13/21 07:26 36.5 C 81 16 125/75 91 92 PG Care Time/CCT Total # of Minutes Spent Total Time Spent with Patient: Total time spent is greater than 50% in coordination of care (as documented) at patient's floor/unit and/or counseling patient: Coding Level of Care Code 75890 Subseq Hosp Care Lvl 3 Diagnoses Femur fracture, right S72.331A Encounter type: initial encounter Femur location: shaft Fracture alignment: displaced Fracture morphology: oblique Fracture type: closed Acute blood loss anemia D62 UTI (urinary tract infection) N39.0 History of DVT (deep vein thrombosis) Z86.718 High cholesterol E78.00 (1) Femur fracture, right Encounter type: initial encounter Femur location: shaft Fracture alignment: displaced Fracture morphology: oblique Fracture type: closed Qualified Code(s): S72.331A - Displaced oblique fracture of shaft of right femur, initial encounter for closed fracture
[2021-09-13] MEDS: ATORVASTATIN 20 MG TAB PO SCH (19:56)
[2021-09-13] MEDS: DOCUSATE SODIUM/SENNA 50/8.6MG TAB PO SCH (19:56)
[2021-09-14] MEDS: ENOXAPARIN 80 MG/0.8 ML SYR SQ SCH (05:59)
[2021-09-14 06:49] LABS: Basophils # (auto) 0.02 K/uL (0-0.2); Basophils % (auto) 0.3 %; Eosinophils # (auto) 0.18 K/uL (0-0.5); Eosinophils % (auto) 2.6 %; Hematocrit (blood only) 25.1 % (37-47); Hemoglobin 8.1 g/dL (12.0-16.0); Immature Granulocytes # (auto) 0.01 K/uL (0.00-0.02); Immature Granulocytes % (auto) 0.1 %; Lymphocytes # (auto) 1.22 K/uL (1.2-3.4); Lymphocytes % (auto) 17.8 %; Mean Corpuscular Hemoglobin 30.3 pg (25-34); Mean Corpuscular Hgb Conc 32.3 g/dL (32-36); Mean Platelet Volume 8.9 fL (7.4-10.4); Monocytes # (auto) 0.76 K/uL (0.11-0.59); Monocytes % (auto) 11.1 %; Neutrophils # (auto) 4.68 K/uL (1.4-6.5); Neutrophils % (auto) 68.1 %; Platelet Count 206 K/uL (130-400); RDW Coefficient of Variation 14.3 % (11.5-14.5); RDW Standard Deviation 49.2 fL (36.4-46.3); Red Blood Count 2.67 M/uL (4.2-5.4); White Blood Count 6.87 K/uL (4.8-10.8)
[2021-09-14 07:01] LABS: INR 2.1 (0.9-1.1)
[2021-09-14] MEDS: oxyCODONE HCL IR 5 MG TAB (IMMEDIATE RELEASE) PO PRN ×3 (10:05→23:51)
[2021-09-14] MEDS: CHOLECALCIFEROL 1,000 UNITS 25 MCG TAB PO SCH (10:05)
[2021-09-14] MEDS: ACETAMINOPHEN 500 MG TAB PO SCH ×3 (10:09→20:50)
[2021-09-14] MEDS: WARFARIN SOD 2.5 MG TAB PO SCH (16:01)
--- NOTE | 2021-09-14 17:51 | Hospitalist Progress Note ---
Date of Service September 14, 2021 Assessment & Plan (1) Femur fracture, right: Plan: - Mechanical fall - got tangled in shower curtain and fell and was down a couple hours before found (water wasn't running) - CK mildly elevated on admission (300) - XR - displaced subtrochanteric fracture of the proximal R femur - S/P ORIF with nailing on 09/10 -- EBL 400 mL - Pain and bowel regimen - Vit D level checked and low at 18 and will add supplementation with Vit D/Calcium given fracture - PT/OT post-operatively - patient is hoping she does well enough to go home with services and may be a good candidate pending evaluations -- Anticipate she will do better as we get a bit further out from surgery and good pain control (2) Acute blood loss anemia: Plan: - Transfused 1 unit PRBC on 09/12 - Hgb currently at 8.1 with recheck in AM - Suspect due to fracture and surgical losses - No active signs of bleeding and suspect this is from losses (3) UTI (urinary tract infection): Plan: - UA grossly infected but pt is asymptomatic (uncomplicated) - Rocephin 1g IV daily - given surgical intervention treated x 5 days - Urine culture - e. 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 14 years ago - Reports she is normally well regulated on warfarin and rarely needs dosage adjustments and normally only needs once a month INR checks - INR at 2.1 (5) High cholesterol: Plan: - Also H/O TIA - Continue Atorvastatin (6) Type 2 diabetes mellitus: Plan: - A1c is 6.7 - Pt reports her PCP has been monitoring this closely - Overall BSGs acceptable here given stress of surgery and her age - Recommend continued monitoring as an outpatient and mindfulness of dietary choices - would not overcorrect given age as this would be an acceptable A1c Plan: Disposition: PT/OT; would like to return home with home services and may be a good candidate pending pain control and improved mobility -- Has not required IV pain medication today -- Good family support with multiple medical center director; a lot of different assistive devices -- Possible D/C this weekend? Continue to work with therapy Admission and Anticipated Discharge Date Admission Date: September 09, 2021 Subjective Reports pain is doing better each day in regards to pain and energy/appetite is slowly improving. She is slowly improving with therapy and remains motivated. She did move her bowels early this AM. Tolerating a diet without issue. Review of Systems Review of Systems: All systems reviewed & are unremarkable except as noted in Subjective Physical Exam Physical Exam: PHYSICAL EXAM General Appearance: WDWN in NAD who is A&O x 3 HEENT: Head is normocephalic/atraumatic; Hearing grossly intact; Mucous membranes moist Neck: Supple; Trachea midline; Neg JVD Heart: RRR with murmur Lungs: CTA in all lung cabello bilaterally; Respirations unlabored; Neg accessory muscle use Abdomen: Soft, non-tender, non-distended; Positive BS x 4 quadrants Extremities: Neg cyanosis or edema; R hip with surgical dressing in place - did not remove but some dried blood on dressings some ecchymosis along larger incision and the posterior element of thigh Neurological: Speech clear; Gross motor/sensory function intact; Neg focal neurologic deficits Psychiatric: Appropriate mood/affect Skin: Normal Color; Warm/Dry Results & Data Results & Data ([facility]) Vital Signs (Past 12 Hours) Vital Signs Temp Pulse Resp BP Pulse Ox 09/14/21 15:00 36.7 C 83 16 115/73 90 09/14/21 07:00 36.7 C 84 16 131/74 92 PG Care Time/CCT Total # of Minutes Spent Total Time Spent with Patient: Total time spent is greater than 50% in coordination of care (as documented) at patient's floor/unit and/or counseling patient: Coding Level of Care Code 78328 Subseq Hosp Care Lvl 3 Diagnoses Femur fracture, right S72.331A Encounter type: initial encounter Femur location: shaft Fracture alignment: displaced Fracture morphology: oblique Fracture type: closed Acute blood loss anemia D62 UTI (urinary tract infection) N39.0 History of DVT (deep vein thrombosis) Z86.718 High cholesterol E78.00 Type 2 diabetes mellitus E11.9 (1) Femur fracture, right Encounter type: initial encounter Femur location: shaft Fracture alignment: displaced Fracture morphology: oblique Fracture type: closed Qualified Code(s): S72.331A - Displaced oblique fracture of shaft of right femur, initial encounter for closed fracture
[2021-09-14] MEDS: ATORVASTATIN 20 MG TAB PO SCH (20:50)
[2021-09-14] MEDS: DOCUSATE SODIUM/SENNA 50/8.6MG TAB PO SCH (20:50)
[2021-09-15 06:32] LABS: Basophils # (auto) 0.02 K/uL (0-0.2); Basophils % (auto) 0.4 %; Eosinophils # (auto) 0.27 K/uL (0-0.5); Eosinophils % (auto) 4.8 %; Hematocrit (blood only) 25.4 % (37-47); Immature Granulocytes # (auto) 0.01 K/uL (0.00-0.02); Immature Granulocytes % (auto) 0.2 %; Lymphocytes # (auto) 1.24 K/uL (1.2-3.4); Lymphocytes % (auto) 21.8 %; Mean Corpuscular Hemoglobin 29.9 pg (25-34); Mean Corpuscular Hgb Conc 31.5 g/dL (32-36); Mean Corpuscular Volume 94.8 fL (80-100); Mean Platelet Volume 9.2 fL (7.4-10.4); Monocytes # (auto) 0.64 K/uL (0.11-0.59); Monocytes % (auto) 11.3 %; Neutrophils % (auto) 61.5 %; Platelet Count 262 K/uL (130-400); RDW Coefficient of Variation 14.3 % (11.5-14.5); RDW Standard Deviation 49.6 fL (36.4-46.3); Red Blood Count 2.68 M/uL (4.2-5.4); White Blood Count 5.68 K/uL (4.8-10.8)
[2021-09-15] MEDS: ACETAMINOPHEN 500 MG TAB PO SCH (08:58)
[2021-09-15] MEDS: CHOLECALCIFEROL 1,000 UNITS 25 MCG TAB PO SCH (08:58)
[2021-09-15] MEDS ORDERED: CALCIUM 600MG + VIT D 400 IU TAB PO SCH (09:00)
[2021-09-15] MEDS: oxyCODONE HCL IR 5 MG TAB (IMMEDIATE RELEASE) PO PRN (12:10)
--- NOTE | 2021-09-15 20:01 | Hospitalist Progress Note ---
Date of Service September 15, 2021 Assessment & Plan (1) Femur fracture, right: Plan: - Mechanical fall - got tangled in shower curtain and fell and was down a couple hours before found (water wasn't running) - CK mildly elevated on admission (300) - XR - displaced subtrochanteric fracture of the proximal R femur - S/P ORIF with nailing on 09/10 -- EBL 400 mL - Pain and bowel regimen - Vit D level checked and low at 18 and will add supplementation with Vit D/Calcium given fracture - PT/OT post-operatively - patient is hoping she does well enough to go home with services and may be a good candidate pending evaluations -- Anticipate she will do better as we get a bit further out from surgery and good pain control (2) Acute blood loss anemia: Plan: - Transfused 1 unit PRBC on 09/12 - Hgb currently at 8.1 with recheck in AM - Suspect due to fracture and surgical losses - No active signs of bleeding and suspect this is from losses (3) UTI (urinary tract infection): Plan: - UA grossly infected but pt is asymptomatic (uncomplicated) - Rocephin 1g IV daily - given surgical intervention treated x 5 days - Urine culture - e. 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 14 years ago - Reports she is normally well regulated on warfarin and rarely needs dosage adjustments and normally only needs once a month INR checks - INR at 2.1 (5) High cholesterol: Plan: - Also H/O TIA - Continue Atorvastatin (6) Type 2 diabetes mellitus: Plan: - A1c is 6.7 - Pt reports her PCP has been monitoring this closely - Overall BSGs acceptable here given stress of surgery and her age - Recommend continued monitoring as an outpatient and mindfulness of dietary choices - would not overcorrect given age as this would be an acceptable A1c Plan: Disposition: PT/OT; would like to return home with home services and may be a good candidate pending pain control and improved mobility -- Has not required IV pain medication today -- Good family support with multiple certified ophthalmic medical technician; a lot of different assistive devices -- Possible D/C this weekend? Continue to work with therapy Admission and Anticipated Discharge Date Admission Date: September 09, 2021 Results & Data Results & Data ([facility]) Vital Signs (Past 12 Hours) Vital Signs Temp Pulse Pulse Resp BP BP Pulse Ox 09/15/21 10:55 97.7 F 75 87 16 132/76 130/73 92 PG Care Time/CCT Total # of Minutes Spent Total Time Spent with Patient: Total time spent is greater than 50% in coordination of care (as documented) at patient's floor/unit and/or counseling patient: Coding Diagnoses Femur fracture, right S72.331A Encounter type: initial encounter Femur location: shaft Fracture alignment: displaced Fracture morphology: oblique Fracture type: closed Acute blood loss anemia D62 UTI (urinary tract infection) N39.0 History of DVT (deep vein thrombosis) Z86.718 High cholesterol E78.00 Type 2 diabetes mellitus E11.9 (1) Femur fracture, right Encounter type: initial encounter Femur location: shaft Fracture alignment: displaced Fracture morphology: oblique Fracture type: closed Qualified Code(s): S72.331A - Displaced oblique fracture of shaft of right femur, initial encounter for closed fracture
--- NOTE | 2021-09-15 20:05 | Discharge Summary ---
Date of Service September 15, 2021 Admission HPI Per Admitting Provider Sherry Carias is here for a fall. She fell while in the shower, she was turning and tripped over the curtain and landed on her backside. The water was not on yet. She was then stuck between the shower chair and the shower. She did not hit her head. She was stuck in her shower for a couple of hours before her son found her. She did not have any chest pain. She does not use any assisted devices at home and does not use any stairs at home. She had a prior history of a TIA. She also has a prior history of a DVT and PE after she was hospitalized approximately 12 years ago. She has since been on Warfarin with the last dose on 09/08 in the evening. She has been told that she has borderline high blood sugar but has not taken medications for this. She has had a prior partial hysterectomy and did not have any complications with that procedure. Denies tobacco use, alcohol use, rec. drug use. Not vaccinated against COVID-19. Principal Diagnosis Right femur fracture Prehospital urinary tract infection treated Discharge Exam The patient appeared well Vital signs as documented. Lungs are appear unlabored Patient alert and oriented she feels she is safe to go home feels her family care for her Discharge Data Allergies Allergy/AdvReac Type Severity Reaction Status Date / Time rosuvastatin [From Crestor] AdvReac Unknown Unknown Verified 09/08/21 22:32 Consultations 09/08/21 23:02 ED Decision to Admit Stat 09/09/21 04:22 Consult Anesthesiology Routine Consult Orthopedic Surgery Routine Procedures Performed Operation Date: 09/10/21 16:05 Actual Procedures p Long Troch Nail Right(Right) - Chris Vivas, Ordered Studies 09/10/21 16:24 FL hip RT 2-3V Routine Diabetes Follow up Diabetes Follow-up Needed for Newly Diagnosed Diabetes Hospital Course (1) Femur fracture, right: - Mechanical fall - got tangled in shower curtain and fell and was down a couple hours before found (water wasn't running) - CK mildly elevated on admission (300) - XR - displaced subtrochanteric fracture of the proximal R femur - S/P ORIF with nailing on 09/10 -- EBL 400 mL - Pain and bowel regimen - Vit D level checked and low at 18 and will add supplementation with Vit D/Calcium given fracture - PT/OT post-operatively - patient has decided to go home with services (2) Acute blood loss anemia: - Transfused 1 unit PRBC on 09/12 - Hgb currently at 8.1 with recheck in AM - Suspect due to fracture and surgical losses - No active signs of bleeding and suspect this is from losses (3) UTI (urinary tract infection): - UA grossly infected but pt is asymptomatic (uncomplicated) - Rocephin 1g IV daily - given surgical intervention treated for additional 5 days after discharge - Urine culture - e. 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 14 years ago - Reports she is normally well regulated on warfarin and rarely needs dosage adjustments and normally only needs once a month INR checks - INR at 2.1 (5) High cholesterol: - Also H/O TIA - Continue Atorvastatin (6) Type 2 diabetes mellitus: - A1c is 6.7 - Pt reports her PCP has been monitoring this closely - Overall BSGs acceptable here given stress of surgery and her age - Recommend continued monitoring as an outpatient and mindfulness of dietary choices - would not overcorrect given age as this would be an acceptable A1c Disposition: PT/OT; would like to return home with home services and may be a good candidate pending pain control and improved mobility -- Has not required IV pain medication today -- Good family support with multiple certified medical technician assistant; a lot of different assistive devices --Patient wishes to go home with home care support Total Time Total Time Spent Total Time Spent (In Minutes): It required greater than 30 minutes to prepare this patient for discharge Discharge Plan Discharge Items Patient Disposition: Home - Home Health Services Reason For Visit: RIGHT FEMUR FRACTURE Discharge Diagnosis: right hip fracture s/p nail Activity: Per Instructions section Activity Comment: home PT/OT Weightbearing: Right toe touch Weightbearing Comment: with walker Non-emergency contact: Surgeon Call non-emergency contact if: your pain is not controlled, your temperature is above 101.5, your wound has increased redness and your wound has increased dr fernandez Follow-up/Referrals: Kailey Esquivel DO [Primary Care Provider] - Diet: Regular Addtl Attending Provider Instructions: It was identified that you did have a urinary infection prior to your hospital stay,will recommend continued treatment after discharge to finish course follow up with orthopedics as below Addtl First Line Supervisor Provider Instructions: [facility] DISCHARGE INSTRUCTIONS: HIP FRACTURE SELF CARE INSTRUCTIONS: A. You are to ambulate with a walker or crutches for approximately 6 weeks. B. You are TOE TOUCH WEIGHT BEARING on your operative lower extremity for at least 6 weeks. C. Wear low heeled shoes with non-slip soles D. Be sure that your floors are free of things that could trip you throw rugs, electrical cords, and small objects. Avoid wet and waxed floors, especially with crutches/walker/cane. E. Try to walk several times a day with rest periods between. F. You may shower 48 hours after surgery and get the incision area wet, but DO NOT soak or submerge incision area in water. (No baths, swimming pools, hot tubs) G. You will need daily dressing changes for the first week. If the wound remains dry, you may do every other day dressing changes. Keep wound covered until seen back in the office for a wound check. You CAN shower in 72 hours from the day of surgery if you have minimal drainage. . If incision is leaking through the dressing, please call the office . H. Do NOT apply soap or any ointment/lotions directly over incision. I. You may use ice as needed to operative site. SPECIAL CARE INSTRUCTIONS: VERY IMPORTANT TO READ AND REVIEW A. You may be at risk for phlebitis or blood clots. a. Wear surgical stockings (KELLIE hose) for 2 weeks after surgery to improve circulation and reduce swelling. b. Resume your Coumadin dosing. You may be on Lovenox shots for a short period of time until your INR is in the correct range. You will need regular INR blood tests to follow how thin your blood is while taking your Coumadin. B. There are a few signs you need to watch for after you are home. Call [facility] at [phone] if you experience any of the following: a. If you have a temperature of 101 degrees or higher. b. Sudden increase in pain in your hip not relieved by rest or pain medication. c. Any fluid or drainage from the incision; redness of the incision. d. Shortness of breath or chest pain. C. Call your physician if: a. Temperature is greater than 101 degrees (F). b. Pain is not relieved by prescribed pain medications. c. Increase drainage or redness from incision. d. Unanswered questions or concerns. D. Pain Medication: a. You will be prescribed pain medication upon discharge that should last till your first post-operative appointment. b. If you experience nausea and/or skin rash, discontinue this medication and contact our office for an alternative medication. c. Caution- narcotic pain medication can cause constipation. FOLLOW UP VISIT: Please call [facility] at [phone] to schedule a follow up appointment 10-14 days from the date of your surgery date. Pending Studies at Discharge: No Stand-Alone Forms: My [facility], Smoking Cessation Medications and DC Order Prescriptions: New acetaminophen [Tylenol Extra Strength] 500 mg Tablet 1,000 mg PO TID Qty: 30 RF: 0 oxycodone 5 mg Tablet 5 - 10 mg PO Q4H PRN (Reason: pain) Qty: 14 RF: 0 cefdinir 300 mg capsule 300 mg PO BID 3 Days Qty: 6 RF: 0 Continued atorvastatin 20 mg tablet 20 mg PO QPM RF: 0 warfarin 5 mg tablet 2.5 mg PO QPM RF: 0 Discharge Orders: Discharge Order (Routine); Ordered 09/15/21 Ordered By: Ramy Israel Admission Data Admit Date/Time: 09/09/21 01:58 Attending Provider: Ramy Israel Admit Provider: Emma Mclaughlin Primary Care Provider: Kailey Esquivel Other Providers: Emma Mclaughlin ; Shelby Cuadra ; Chris Vivas ; [facility] Healthcare Other Interventions: Discharge Summary Assessment (RN) Last Done: 09/15/21 10:55 Coding Level of Care Code D/C DAY MANAGEMENT >30 MINS Diagnoses Femur fracture, right S72.331A Encounter type: initial encounter Femur location: shaft Fracture alignment: displaced Fracture morphology: oblique Fracture type: closed Acute blood loss anemia D62 UTI (urinary tract infection) N39.0 History of DVT (deep vein thrombosis) Z86.718 High cholesterol E78.00 Type 2 diabetes mellitus E11.9 Home Health Attestation I certify that this patient is under my care and that I, or a physicians warehouse administrative assistant working with me, had a face to-face encounter that meets the home health [id number] encounter requirements with this patient. The encounter with the patient was in whole, or in part, for the following medical condition, which is the primary reason for home health care (list medical condition): I certify that, based on my findings, the following services are medically necessary home health services: My clinical findings support the need for the above services because: OT Assess ADL Status and Restore Function w ADLs PT Assessment for Endurance / Balance / Strength Skilled Nsg Assessment Surgical Incision / Wound Further, I certify that my clinical findings support that this patient is homebound (i.e. absences from home require considerable and taxing effort and are for medical reasons or shinto services or infrequently or of short duration when for other reasons) because: Assistance of 1 Person for Ambulation/Activities Certification for Home Health Services: Based on the above findings, I certify that this patient is confined to the home and needs intermittent long term care, physical therapy and/or speech therapy or continues to need occupational therapy. The patient is under my care, and I have initiated the establishment of the plan of care. This patient will be followed by a physician who will periodically review the plan of care.
== END 2021-09-15 13:01 | disposition home health service (06) | DRG 481 ==
LOC: ED 21:29 → 3W 09-09 01:58 → SUATTDRO 09-09 01:58 → 3W 09-09 03:44 → 3N 09-14 16:38